=== PATIENT | male | born 1940 | race Two or more races ===

== ENCOUNTER 2020-02-25 00:52 | Inpatient (IN) | payer BC, OTHER ==
[~2020-02-25] VITALS: Ht 167.6 cm; Wt 63.5 kg
--- NOTE | 2020-02-25 00:55 | NUR ---
PT BIBFROM SNF C/O LOW O2 SAT IN THE 80'S ON ROOM AIR. PT PLACED ON FACE MASK 10 LPM. PT SATTING 98%. PT NOTED W/ FEVER @102.2. AWARE. PT CONNECTED TO THE EQUALIZER OPERATOR AND POX. IV LINE ESTABLISHED ON THE RAC 18 G,
--- NOTE | 2020-02-25 01:14 | NUR ---
BLOOD COLLECTED AND SENT TO LAB
--- NOTE | 2020-02-25 01:16 | NUR ---
EMT AT BEDSIDE FOR EKG
[2020-02-25] MEDS ORDERED: LIDOCAINE 2% JEL UROJET 10 ML MM ONE ×2 (01:21→01:30)
[2020-02-25] MEDS ORDERED: ACETAMINOPHEN 650 MG/SUPP.RECT RC ONE ×2 (01:21→01:30)
[2020-02-25] MEDS ORDERED: LEVOFLOXACIN 750 MG /D5W 150ML 150 ML IV ONE ×2 (01:21→01:30)
[2020-02-25] MEDS ORDERED: IV NS 0.9% 1,000 ML BAG IV ONE ×2 (01:30→03:30)
--- NOTE | 2020-02-25 01:30 | NUR ---
COVID AND FLU SWABS SENT TO LAB
--- NOTE | 2020-02-25 01:37 | NUR ---
RADIOLOGY AT BEDSIDE FOR XRAY.
--- NOTE | 2020-02-25 01:37 | NUR ---
PT ON 10L SIMPLE MASK, SAT 97%. PT NOTED TACHY AT 104.
--- NOTE | 2020-02-25 01:41 | NUR ---
URINE COLLECTED, SENT TO LAB.
[2020-02-25 01:43] LABS: HEMATOCRIT 51 % (39-51); MEAN CORPUSCULAR VOLUME 102 fL (80-96); MONOCYTES # (AUTO) 0.4 /CMM (0.1-1.30)
[2020-02-25 01:46] LABS: BASOPHILS # (AUTO) 0.1 /CMM (0.0-0.2); BASOPHILS % (AUTO) 0.4 % (0.0-2.0); HEMOGLOBIN 15.4 g/dL (13.5-17.5); LYMPHOCYTES # (AUTO) 0.9 /CMM (0.8-4.8); LYMPHOCYTES % (AUTO) 5.7 % (20.0-44.0); MEAN CORPUSCULAR HGB CONC 30 g/dl (31.0-36.0); MONOCYTES % (AUTO) 2.9 % (2.0-12.0); NEUTROPHILS # (AUTO) 13.6 /CMM (1.8-8.9); PLATELET COUNT (AUTO) 167 /CMM (150-450); RED BLOOD CELL COUNT(AUTO) 4.98 MIL/uL (4.5-6.0); WHITE BLOOD COUNT (AUTO) 14.9 K/uL (4.3-11.0)
[2020-02-25 01:47] LABS: BILIRUBIN,URINE Negative (NEGATIVE); BLOOD, URINE Trace-lysed Ery/uL (NEGATIVE); COLOR,URINE YELLOW (YELLOW); LEUKOCYTE ESTERASE ,URINE Small (NEGATIVE); NITRITE, URINE Negative (NEGATIVE); PROTEIN,URINE Negative (NEGATIVE); UGLUCOSE Negative (NEGATIVE); UROBILINOGEN,URINE 0.2 EU/dL (0.2)
[2020-02-25 01:57] LABS: ALANINE AMINOTRANSFERASE 36 U/L (12-78); ALKALINE PHOSPHATASE 160 U/L (46-116); ASPARTATE AMINOTRANSFERASE 25 U/L (15-37); B-TYPE NATRIURETIC PEPTIDE 1767 PG/ML (0-125); BILIRUBIN,DIRECT 0.2 mg/dL (0.0-0.2); BILIRUBIN,TOTAL 0.6 mg/dL (0.2-1.0); CALCIUM, SERUM 10.5 mg/dL (8.5-10.1); CARBON DIOXIDE 23 mmol/L (21-32); CREATININE 3.3 mg/dL (0.6-1.3); GLUCOSE 208 mg/dL (74-106); POTASSIUM 3.3 mmol/L (3.5-5.1); TOTAL PROTEIN, SERUM 8.6 g/dL (6.4-8.2)
[2020-02-25] MEDS ORDERED: ASPIRIN 300 MG/SUPP.RECT RC ONE ×2 (01:57→02:00)
[2020-02-25 02:01] LABS: CHLORIDE 152 mmol/L (98-107); SODIUM SERUM 192 mmol/L (136-145); UREA NITROGEN, BLOOD 100 mg/dL (7-18)
[2020-02-25 02:02] LABS: BACTERIA,URINE None seen /HPF (None Seen); RBC,URINE 0-2 /HPF (0-2); SQUAMOUS EPITHELIAL CELL,UR None Seen /HPF (None Seen); URINE AMORPHOUS URATE Moderate /HPF (None Seen); YEAST,URINE Few /HPF (None Seen)
[2020-02-25] MEDS ORDERED: ATOR20TA PO (02:08)
[2020-02-25] MEDS ORDERED: TAMS-12 PO (02:08)
[2020-02-25] MEDS ORDERED: METO25TA6 PO (02:08)
[2020-02-25] MEDS ORDERED: CRAN450C PO (02:08)
[2020-02-25] MEDS ORDERED: TYL2T PO (02:08)
[2020-02-25] MEDS ORDERED: AMLO10TA4 PO (02:08)
[2020-02-25] MEDS ORDERED: SENN-261 PO (02:08)
[2020-02-25] MEDS ORDERED: PANT40TA2 PO (02:08)
[2020-02-25] MEDS ORDERED: ASPI-1169 PO (02:08)
[2020-02-25] MEDS ORDERED: HYDR-4076 PO (02:08)
[2020-02-25] MEDS ORDERED: FINA5TAB3 PO (02:08)
[2020-02-25] MEDS ORDERED: QUET25TA PO ×2 (02:08)
[2020-02-25] MEDS ORDERED: TRAM50TA2 PO (02:08)
[2020-02-25] MEDS ORDERED: MIRT-121 PO (02:08)
--- NOTE | 2020-02-25 02:09 | NUR ---
PT ON BROWNELL OPERATOR AND PULSE OX. NOTED HR AT 93 NOW, SAT 95%. WILL CONTINUE TO MONITOR.
--- NOTE | 2020-02-25 02:23 | NUR ---
DR. PISANO SPEAKING WITH DR. SCHULTZ ([facility])
[2020-02-25] MEDS ORDERED: CEFTRIAXONE 1 G in IV D5W 50 ML IV ONE (02:30)
[2020-02-25] MEDS ORDERED: CEFTRIAXONE 1GM BAG (ER ONLY) 50 ML IV ONE (02:32)
[2020-02-25 02:40] LABS: CREATINE KINASE, TOTAL 137 U/L (39-308); FERRITIN 2196 ng/mL (8-388)
[2020-02-25 02:44] LABS: D-DIMER 18.28 mg/L(FEU (0.17-0.50)
[2020-02-25 02:45] LABS: C-REACTIVE PROTEIN 5.9 mg/dL (0.0-0.9)
--- NOTE | 2020-02-25 03:01 | NUR ---
PT BROUGHT TO CT.
--- NOTE | 2020-02-25 03:15 | NUR ---
PT BACK FROM CT. PT NOTED HYPOTENSIVE AGAIN, MD AWARE. WILL CONTINUE TO MONITOR. 95/55, HR OF 89, SAT 97%.
--- NOTE | 2020-02-25 03:17 | NUR ---
SPOKE TO THE MD REGARDING PT BEING HYPOTENSIVE, 1L NS ORDERED.
--- NOTE | 2020-02-25 03:24 | NUR ---
DR. PISANO SPEAKING WITH DR. JUNIOR REGARDING ADMISSION
--- NOTE | 2020-02-25 03:30 | NUR ---
CALLED NURSING SUP FOR BED
--- NOTE | 2020-02-25 04:01 | NUR ---
PT ON MONITOR AND PULSE OX. VSS.
--- NOTE | 2020-02-25 04:45 | NUR ---
RN OPENING NOTES RECEIVED PT IN BED. ASLEEP. A/O X0. NON VERBAL. AROUSABLE TO TOUCH AND LIGHT PAIN. WITH FACE MASK DELIVERING O2 AT 10L. PT ON CONT O2 MONITORING SATURATING AT 98% AT THIS TIME. NO RESP DISTRESS OR SHORTNESS OF BREATH NOTED AT THIS TIME. BREATHING IS EVEN AND UNLABORED AT THIS TIME. ON TELE MONITORING, PT PRESENTS WITH NSR HEART RATE OF 85. PT IS CURRENTLY NPO. LEFT IV SITE SLIGHT SWELLING AND RED AT THE SITE NOTED. IV SITE REMOVED. NO S/S OF BLEEDING NOTED. TAPED WITH GAUZE AND APPLIED WITH COLD COMPRESS. RIGHT AC IV FLUSHED ASEPTICALLY, PATENT. PT HAS SANDS CATHETER DRAINING CLOUDY YELLOW URINE, FREE OF SEDIMENT. BED IS LOCKED IN LOWEST POSITION. BED ALARM ON. SIDE RAILS UP X2. ID BAND ON. CALL LIGHT WITHIN REACH. WILL CONTINUE TO CLOSELY MONITOR. Addendum: 02/26/20 at 0503 by JASMYNE ROSS RN DISREGARD, INCORRECT TIME DOCUMENTED
--- NOTE | 2020-02-25 05:10 | NUR ---
Angella aj in [facility] - 02/25/20 at 0544 by BEATRIS CALLED FOR REPORT, NURSE NOT AVAILABLE.
--- NOTE | 2020-02-25 05:18 | NUR ---
REPORT GIVEN TO WILSON OLSON FOR CINDI. PT TRANSFERED PER [employer]S PROTOCOL.
[2020-02-25 05:40] VITALS: BP 108/64
--- NOTE | 2020-02-25 05:40 | NUR ---
Admitting NOTES Received patient fro ER via juliaA/Ox0, on simple mask @ 10 L of O2, tolerating well, SPO2 is 91-93%, tele-monitor readings is SR 83, Davidson cath in place, draining yellow cloudy urine by gravity, IV lines noted on: R AC G18, L AC G20, both patent in intact, flushes well, reddens noted on sacrum are, bilateral scabs on hands noted. Safety measures in place, bed is locked, in lowest position, HOB elevated, O2 sat monitor in place, call light in reach, will cont to monitor
[2020-02-25] MEDS ORDERED: MAG HYDROX/AL HYDROX/SIMETH 30 ML UDC PO PRN (06:00)
[2020-02-25] MEDS ORDERED: HYDROCODONE/APAP 5/325MG TABLET PO PRN (06:00)
[2020-02-25] MEDS ORDERED: MAGNESIUM HYDROXIDE 30 ML UDC PO PRN (06:00)
[2020-02-25] MEDS ORDERED: Z GUARD REMEDY 2 OZ OINT TP PRN (06:00)
[2020-02-25] MEDS ORDERED: ZOLPIDEM TARTRATE 5 MG TABLET PO PRN (06:00)
[2020-02-25] MEDS ORDERED: ACETAMINOPHEN 325 MG TABLET PO PRN (06:00)
[2020-02-25] MEDS ORDERED: ONDANSETRON HCL/PF 4 MG/2 ML VIAL IVP PRN (06:00)
--- NOTE | 2020-02-25 06:00 | NUR ---
Pictures taken, placed in chart
[2020-02-25 06:15] LABS: OCCULT BLOOD STOOL POSITIVE (NEGATIVE)
[2020-02-25 08:00] VITALS: BP 91/55
--- NOTE | 2020-02-25 08:07 | NUR ---
spoke with Ewelina ([phone]) , she is legal power of atty
--- NOTE | 2020-02-25 08:10 | NUR ---
Phone call from lab Na 188
[2020-02-25] MEDS ORDERED: VANCOMYCIN 1 GM in IV D5W 250 ML IV SCH (09:00)
--- NOTE | 2020-02-25 09:00 | NUR ---
Critical lab values reported to hospitalist
[2020-02-25] MEDS: IV NS 0.9% 1,000 ML IV PRN ×2 (09:05→18:21)
[2020-02-25] MEDS: PIPERACILLIN /TAZOBACTAM 2.25 G in IV D5W 50 ML IV SCH ×4 (09:05→23:16)
[2020-02-25] MEDS: FAMOTIDINE/PF INJ 20 MG/2 ML VIAL IV SCH ×2 (10:03→21:17)
[2020-02-25] MEDS ORDERED: MULT-447 PO (10:16)
[2020-02-25 14:10] LABS: BILIRUBIN,URINE NEGATIVE (NEGATIVE); BLOOD, URINE SMALL Ery/uL (NEGATIVE); COLOR,URINE YELLOW (YELLOW); LEUKOCYTE ESTERASE ,URINE TRACE (NEGATIVE); NITRITE, URINE NEGATIVE (NEGATIVE); PH,URINE 5.5 (5.0-8.0); PROTEIN,URINE TRACE mg/dl (NEGATIVE); UGLUCOSE NEGATIVE (NEGATIVE); UROBILINOGEN,URINE 0.2 EU/dL (0.2)
[2020-02-25 14:20] LABS: BACTERIA,URINE Few /HPF (None Seen); SQUAMOUS EPITHELIAL CELL,UR Few /HPF (None Seen); YEAST,URINE Few /HPF (None Seen)
[2020-02-25 14:27] LABS: CREATININE, URINE 134.2 MG/DL (30.0-125.0); URINE TOTAL PROTEIN 64.3 mg/dL (0-11.9)
[2020-02-25 15:07] LABS: EOSINOPHIL,URINE None Seen
[2020-02-25 15:45] LABS: CALCIUM, SERUM 8.3 mg/dL (8.5-10.1); CARBON DIOXIDE 17 mmol/L (21-32); CREATININE 2.6 mg/dL (0.6-1.3); GLUCOSE 132 mg/dL (74-106)
[2020-02-25 15:58] LABS: SODIUM SERUM 191 mmol/L (136-145)
[2020-02-25 15:59] LABS: CHLORIDE 151 mmol/L (98-107); UREA NITROGEN, BLOOD 96 mg/dL (7-18)
--- NOTE | 2020-02-25 16:00 | NUR ---
Critical labs reported from lab, Hospitalist notified
--- NOTE | 2020-02-25 18:42 | NUR ---
RN CLOSING NOTES PATIENT REMAINS IN BED, TOLERATING O2 THERAPY WELL, NO DISTRESS OR SOB NOTED, SR ON TELEMONITOR, SANDS CATH DRAINIG YELLOW CLOUDY URINE BY GRAVITY, RESPIRATION EVEN AND RELAXED, ALL MEDICATIONS GIVEN, SPECIMENS SEND TO LAB, COMFORT NEEDS ATTENDED, IV LINES PATENT, INTACT AND FLUSHED, VS WAS STABLE DURING THE SHIFT, SAFETY MEASURES IN PLACE, BED IS LOCKED IN LOWEST POSITION, HOB ELEVATED, WILL ENDORSE TO PM SHIFT RN FOR CINDI
--- NOTE | 2020-02-25 19:10 | NUR ---
RN OPENING NOTES RECEIVED PT IN BED. ASLEEP. A/O X0. NON VERBAL. AROUSABLE TO TOUCH AND LIGHT PAIN. WITH FACE MASK DELIVERING O2 AT 10L. PT ON CONT O2 MONITORING SATURATING AT 98% AT THIS TIME. NO RESP DISTRESS OR SHORTNESS OF BREATH NOTED AT THIS TIME. BREATHING IS EVEN AND UNLABORED AT THIS TIME. ON TELE MONITORING, PT PRESENTS WITH NSR HEART RATE OF 85. PT IS CURRENTLY NPO. LEFT IV SITE SLIGHT SWELLING AND RED AT THE SITE NOTED. IV SITE REMOVED. NO S/S OF BLEEDING NOTED. TAPED WITH GAUZE AND APPLIED WITH COLD COMPRESS. RIGHT AC IV FLUSHED ASEPTICALLY, PATENT. PT HAS SANDS CATHETER DRAINING CLOUDY YELLOW URINE, FREE OF SEDIMENT. BED IS LOCKED IN LOWEST POSITION. BED ALARM ON. SIDE RAILS UP X2. ID BAND ON. CALL LIGHT WITHIN REACH. WILL CONTINUE TO CLOSELY MONITOR.
[2020-02-25 20:00] VITALS: BP 113/57
--- NOTE | 2020-02-25 22:19 | NUR ---
PT IS RESTING WELL. SOMEWHAT RESISTS, BUT ABLE TO T/R.
[2020-02-26] VITALS: BP 130/67
--- NOTE | 2020-02-26 01:05 | NUR ---
PT CURRENTLY RESTING. SAFETY MEASURES IN PLACE. NO INDICATION OF PAIN BASED ON FLACC. PT IS CALM.
[2020-02-26] MEDS: IV NS 0.9% 1,000 ML IV PRN (02:28)
[2020-02-26 04:00] VITALS: BP 125/67
--- NOTE | 2020-02-26 04:05 | NUR ---
PT CLEANED, BED BATH PERFORMED.
[2020-02-26] MEDS: PIPERACILLIN /TAZOBACTAM 2.25 G in IV D5W 50 ML IV SCH ×3 (05:40→18:46)
--- NOTE | 2020-02-26 06:10 | NUR ---
INFORMED DR LOPEZ ABOUT PT SODIUM LEVELS AND RECEIVING NS IVF. NO NEW ORDERS AT THIS TIME. HOLDING IVF. CHARGE NURSE MADE AWARE
[2020-02-26 06:12] LABS: HEMATOCRIT 37 % (39-51); HEMOGLOBIN 11.3 g/dL (13.5-17.5); LYMPHOCYTES % (AUTO) 7.2 % (20.0-44.0); MEAN CORPUSCULAR HGB CONC 30 g/dl (31.0-36.0); MEAN CORPUSCULAR VOLUME 101 fL (80-96); MONOCYTES # (AUTO) 0.2 /CMM (0.1-1.30); MONOCYTES % (AUTO) 1.7 % (2.0-12.0); NEUTROPHILS # (AUTO) 12.3 /CMM (1.8-8.9); NEUTROPHILS % (AUTO) 91.1 % (43.0-81.0); PLATELET COUNT (AUTO) 88 /CMM (150-450); RED BLOOD CELL COUNT(AUTO) 3.66 MIL/uL (4.5-6.0); WHITE BLOOD COUNT (AUTO) 13.5 K/uL (4.3-11.0)
[2020-02-26 06:27] LABS: ALANINE AMINOTRANSFERASE 33 U/L (12-78); ALBUMIN 1.9 g/dL (3.4-5.0); ALKALINE PHOSPHATASE 102 U/L (46-116); ASPARTATE AMINOTRANSFERASE 42 U/L (15-37); BILIRUBIN,TOTAL 0.5 mg/dL (0.2-1.0); CALCIUM, SERUM 8.5 mg/dL (8.5-10.1); CARBON DIOXIDE 20 mmol/L (21-32); CREATININE 2.7 mg/dL (0.6-1.3); GLUCOSE 115 mg/dL (74-106); MAGNESIUM 2.5 mg/dL (1.8-2.4); PHOSPHORUS 2.4 mg/dL (2.5-4.9); POTASSIUM 2.9 mmol/L (3.5-5.1)
[2020-02-26 06:48] LABS: CHLORIDE 155 mmol/L (98-107)
[2020-02-26 06:49] LABS: CHOLESTEROL 84 mg/dL (<200); CREATINE KINASE, TOTAL 504 U/L (39-308); HDL CHOLESTEROL 35 mg/dL (40-60); LDL 36 mg/dL (0-99); THYROID STIMULATING HORMONE 0.807 uIU/mL (0.358-3.74); TRIGLYCERIDES 75 mg/dL (30-150)
[2020-02-26 06:51] LABS: SODIUM SERUM 193 mmol/L (136-145); UREA NITROGEN, BLOOD 96 mg/dL (7-18)
--- NOTE | 2020-02-26 06:53 | NUR ---
CRITICAL LAB SODIUM 193, LACTIC ACID 3.2. CHARGE AWARE. WILL ENDORSE ONCOMING NURSE AND MD.
--- NOTE | 2020-02-26 06:55 | NUR ---
SODIUM LEVEL OF 193. MD AWARE NEW ORDERS OF CHANGE OF FLUID. TO 0.45 NS. WILL ENDORSE TO AM NURSE
[2020-02-26] MEDS ORDERED: IV 1/2NS 1000 ML 1,000 ML IV SCH (07:00)
--- NOTE | 2020-02-26 07:10 | NUR ---
TOOK OFF FACE MASK AND APPLIED NASAL CANNULA. PT NOW ON 1L OF OXYGEN. NO RESPIRATORY DISTRESS OR SHORTNESS OF BREATH NOTED AT THIS TIME. PT IS BECOMING MORE ALERT. O2 SATURATION IS AT 97%. Addendum: 02/26/20 at 0822 by JASMYNE ROSS RN MD LIANG MADE AWARE
[2020-02-26 07:21] LABS: BAND % (MANUAL) 5 % (0.0-5.0); LYMPHOCYTES % (MANUAL) 9 % (16-48); MONOCYTES % (MANUAL) 2 % (0-11.0); NEUTROPHILS % (MANUAL) 84 (42-76)
--- NOTE | 2020-02-26 07:30 | NUR ---
RN OPENING NOTES PATIENT IN BED, CONFUSED, ON NC @ 2l, TOLERATING WELL, SPO2 IS 100%, FLACC SCORE INDICATED 0, HOB ELEVATED, IV LINE ON R AC PATENT, INTACT AND FLUSHES WELL, TELE-MONITOR SR 82, NPO STATUS NOTED, SAFETY MEASURES IN PLACE, CALL LIGHT IN PLACE, BED IS LOCKED IN LOWEST POSITION, WILL CONT TO MONITOR
--- NOTE | 2020-02-26 07:35 | NUR ---
TELE-MONITOR READING IS SR [id number] AT THIS MOMENT
--- NOTE | 2020-02-26 07:50 | NUR ---
RN CLOSING NOTES PT IS BECOMING MORE ALERT. LETHARGIC. AROUSABLE TO NAME AND TOUCH. PT IS STILL ON TELE MONITORING NORMAL SINUS RHYTHM. NO CHANGES THROUGHOUT THE NIGHT. HEART RATE AT THIS TIME IS 89. PT IS CURRENTLY ON 1L OF OXYGEN SATURATING AT 97%. NO S/S OF RESPIRATORY DISTRESS NOTED. BREATHING IS EVEN AND UNLABORED. NO SHORTNESS OF BREATH NOTED. PT IS RECEIVING 0.45% NORMAL SALINE ORDERED RUNNING AT 125ML/HR. NO S/S OF INFILTRATION NOTED. NO BOWEL MOVEMENT ON MY SHIFT. SAFETY MEASURES IN PLACE. HEAD OF BED ELEVATED 40 DEGREES. SIDE RAILS UP X2. BED IS LOCKED IN LOWEST POSITION WITH BED ALARM ON. CALL LIGHT WITHIN REACH. ENDORSED TO AM NURSE FOR CONTINUATION OF CARE.
[2020-02-26 08:00] VITALS: BP 113/69
[2020-02-26] MEDS: IV D5W 1,000 ML IV PRN ×2 (08:35→18:46)
[2020-02-26] MEDS: FAMOTIDINE/PF INJ 20 MG/2 ML VIAL IV SCH ×2 (08:41→21:00)
[2020-02-26 09:01] LABS: CALCIUM, SERUM 8.6 mg/dL (8.5-10.1); CARBON DIOXIDE 16 mmol/L (21-32); CREATININE 2.6 mg/dL (0.6-1.3); GLUCOSE 110 mg/dL (74-106)
[2020-02-26 09:04] LABS: CHLORIDE 160 mmol/L (98-107)
[2020-02-26 09:08] LABS: SODIUM SERUM 193 mmol/L (136-145); UREA NITROGEN, BLOOD 100 mg/dL (7-18)
[2020-02-26] MEDS ORDERED: SENNOSIDES 8.6 MG TABLET PO PRN (11:30)
[2020-02-26] MEDS: ASPIRIN 81 MG TAB.CHEW PO SCH (11:30)
[2020-02-26] MEDS ORDERED: hydrALAZINE HCL 25 MG TABLET PO PRN (11:30)
[2020-02-26] MEDS: QUETIAPINE FUMARATE 25 MG TABLET PO SCH ×2 (11:30→21:35)
[2020-02-26 12:00] VITALS: BP 116/64
--- NOTE | 2020-02-26 12:00 | NUR ---
IV LINE STARTED L FA G 22, INTACT AND FLUSHES WELL
[2020-02-26] MEDS: POTASSIUM CL. PREMIX PERIPHER. 50 ML IV SCH ×4 (13:16→16:08)
[2020-02-26 16:00] VITALS: BP 117/65
[2020-02-26] MEDS: POTASSIUM PHOSPHATE MM 5 MMOL in IV NS 0.9% 100 ML IV SCH ×2 (16:55→21:17)
[2020-02-26] MEDS: METOPROLOL TARTRATE 25 MG TABLET PO SCH (17:00)
--- NOTE | 2020-02-26 19:07 | NUR ---
RN OPENING NOTES PATIENT REMAINS IN BED, RESTING COMFORTABLY, ON NC @ 2l, TOLERATING WELL, SPO2 IS 100%, FLACC SCORE INDICATED 0, HOB ELEVATED, IV LINES ON R AC AND L FA PATENT, INTACT AND FLUSHES WELL, TOLERATING FLUIDS WELL , TELE-MONITOR SR 80, NPO STATUS REMAINS, SAFETY MEASURES IN PLACE, CALL LIGHT IN PLACE, BED IS LOCKED IN LOWEST POSITION, WILL CONT TO MONITOR Addendum: 02/26/20 at 1909 by Xiao Contreras RN RN CLOSING NOTES PATIENT REMAINS IN BED, RESTING COMFORTABLY, ON NC @ 2l, TOLERATING WELL, SPO2 IS 100%, FLACC SCORE INDICATED 0, HOB ELEVATED, IV LINES ON R AC AND L FA PATENT, INTACT AND FLUSHES WELL, TOLERATING FLUIDS WELL , TELE-MONITOR SR 80, NPO STATUS REMAINS, SAFETY MEASURES IN PLACE, CALL LIGHT IN PLACE, BED IS LOCKED IN LOWEST POSITION, WILL CONT TO MONITOR
[2020-02-26 20:00] VITALS: BP 125/60
--- NOTE | 2020-02-26 20:00 | NUR ---
Rn opening note Received pt in bed. Breathing even and unlabored with no sob or acute distress noted. No s/s of pain or discomfort. Right AC #18 patent and intact. LFA #22 patent and intact. IV fluids infusing well. Davidson cath in place. Kept clean and dry. All needs rendered. Bed in lowest position. Srx2 up. Will continue to monitor.
[2020-02-26] MEDS ORDERED: VANCOMYCIN 0.75 GM in IV D5W 250 ML IV SCH (21:00)
[2020-02-26] MEDS: ATORVASTATIN 10 MG TABLET PO SCH (21:35)
[2020-02-26] MEDS: TAMSULOSIN 0.4 MG CAP.SR.24H PO SCH (21:35)
[2020-02-26] MEDS: MIRTAZAPINE 15 MG TABLET PO SCH (21:35)
[2020-02-26] MEDS ORDERED: Medication Not On Formulary EA (Atorvastatin Calcium (Lipitor) 20 MG) PO SCH (22:00)
[2020-02-27] VITALS: BP 125/66
[2020-02-27] MEDS: PIPERACILLIN /TAZOBACTAM 2.25 G in IV D5W 50 ML IV SCH ×3 (00:06→12:30)
[2020-02-27 04:00] VITALS: BP 131/63
[2020-02-27] MEDS: IV D5W 1,000 ML IV PRN ×2 (04:37→15:01)
[2020-02-27 06:02] LABS: BASOPHILS % (AUTO) 0.1 % (0.0-2.0); EOSINOPHILS % (AUTO) 0.4 % (0.0-6.0); HEMATOCRIT 36 % (39-51); HEMOGLOBIN 11.1 g/dL (13.5-17.5); LYMPHOCYTES # (AUTO) 0.9 /CMM (0.8-4.8); LYMPHOCYTES % (AUTO) 8.1 % (20.0-44.0); MEAN CORPUSCULAR HGB CONC 31 g/dl (31.0-36.0); MEAN CORPUSCULAR VOLUME 99 fL (80-96); MONOCYTES # (AUTO) 0.2 /CMM (0.1-1.30); MONOCYTES % (AUTO) 1.6 % (2.0-12.0); NEUTROPHILS # (AUTO) 10.3 /CMM (1.8-8.9); NEUTROPHILS % (AUTO) 89.8 % (43.0-81.0); PLATELET COUNT (AUTO) 69 /CMM (150-450); WHITE BLOOD COUNT (AUTO) 11.4 K/uL (4.3-11.0)
[2020-02-27 06:16] LABS: CALCIUM, SERUM 8.2 mg/dL (8.5-10.1); CARBON DIOXIDE 18 mmol/L (21-32); CREATININE 2.1 mg/dL (0.6-1.3); GLUCOSE 158 mg/dL (74-106); MAGNESIUM 2.5 mg/dL (1.8-2.4); PHOSPHORUS 3.5 mg/dL (2.5-4.9); UREA NITROGEN, BLOOD 77 mg/dL (7-18)
[2020-02-27 06:47] LABS: CHLORIDE 153 mmol/L (98-107); POTASSIUM 2.8 mmol/L (3.5-5.1); SODIUM SERUM 185 mmol/L (136-145)
--- NOTE | 2020-02-27 06:50 | NUR ---
telecommunicator note Received phone call from Kieran from lab. Reported critically high sodium 185 and chloride 153. Values trending down. Dr. Dela Cruz made aware of potassium 2.8 with new order for potassium chloride 50 meq IV. New order noted and carried out.
[2020-02-27] MEDS ORDERED: POTASSIUM CHLORIDE 10 MEQ/50 ML PREMIXED IVPB FOR PERIPHERAL LINE IV ONE (07:30)
[2020-02-27] MEDS: PANTOPRAZOLE 40 MG TABLET.DR PO SCH (07:30)
--- NOTE | 2020-02-27 07:30 | NUR ---
RN OPENING NOTES PATIENT IN BED, AOX1, ON NC @ 2l, TOLERATING WELL, SPO2 IS 97%, FLACC SCORE INDICATED 0, HOB ELEVATED, IV LINE ON R AC PATENT, INTACT AND FLUSHES WELL, TELE-MONITOR SR 87, NPO STATUS NOTED, SAFETY MEASURES IN PLACE, CALL LIGHT IN PLACE, BED IS LOCKED IN LOWEST POSITION, WILL CONT TO MONITOR
--- NOTE | 2020-02-27 07:30 | NUR ---
Ship Pilot Dispatcher note pt in bed. alert oriented 1. breathing even and unlabored with no sob or acute distress noted on 2lpm via nc. 02 sat 96%. No s/s of pain and discomfort. IV sites patent and intact. Iv fluids infusing well. Kept clean and dry. All needs rendered . Call light within reach. Bed in lowest position. Endorsed to Xiao for continuity of care.
[2020-02-27 08:00] VITALS: BP 141/85
[2020-02-27 08:06] LABS: PTH, INTACT 39 pg/mL (15-65)
[2020-02-27] MEDS: METOPROLOL TARTRATE 25 MG TABLET PO SCH ×2 (09:00→17:00)
[2020-02-27] MEDS: MULTIVIT W/MINERALS 1 TAB TABLET PO SCH (09:00)
[2020-02-27] MEDS: AMLODIPINE BESYLATE 10 MG TABLET PO SCH (09:00)
[2020-02-27] MEDS: ASPIRIN 81 MG TAB.CHEW PO SCH (09:00)
[2020-02-27] MEDS ORDERED: Medication Not On Formulary EA (Multivitamin With Minerals (One Daily Complete) 1 EACH) PO SCH (09:00)
[2020-02-27] MEDS: QUETIAPINE FUMARATE 25 MG TABLET PO SCH ×2 (09:00→21:15)
[2020-02-27] MEDS: FINASTERIDE (5 MG) 5 MG TABLET PO SCH (09:00)
[2020-02-27] MEDS: FAMOTIDINE/PF INJ 20 MG/2 ML VIAL IV SCH ×2 (10:00→21:12)
[2020-02-27] MEDS: POTASSIUM CL. PREMIX PERIPHER. 50 ML IV SCH ×5 (10:00→15:01)
[2020-02-27 10:37] LABS: LYMPHOCYTES % (MANUAL) 9 % (16-48); MONOCYTES % (MANUAL) 2 % (0-11.0); NEUTROPHILS % (MANUAL) 89 (42-76)
--- NOTE | 2020-02-27 11:30 | NUR ---
FAIL SWALLOW EVALUATION TEST
[2020-02-27 12:00] VITALS: BP 118/63
--- NOTE | 2020-02-27 14:00 | NUR ---
IV LINE INFILTRATED, TRY TO INSET NEW LINE X3, WILL RECOMMEND MID-LINE
[2020-02-27 16:00] VITALS: BP 105/58
[2020-02-27] MEDS: PIPERACILLIN /TAZOBACTAM 3.375 G in IV D5W 50 ML IV SCH (18:28)
--- NOTE | 2020-02-27 19:45 | NUR ---
RN CLOSING NOTES PATIENT REMAINS IN BED, RESTING COMFORTABLY, ON NC @ 2l, TOLERATING WELL, SPO2 IS 96%, FLACC SCORE INDICATED 0, HOB ELEVATED, IV LINES ON R AC AND UPPER MID LINE PATENT, INTACT AND FLUSHES WELL, TOLERATING FLUIDS WELL , TELE-MONITOR SR 84, NPO STATUS REMAINS, SAFETY MEASURES IN PLACE, CALL LIGHT IN PLACE, BED IS LOCKED IN LOWEST POSITION, WILL ENDORSE TO PM SHIFT RN FOR CINDI
[2020-02-27 20:00] VITALS: BP 99/71
--- NOTE | 2020-02-27 20:20 | NUR ---
RECEIVED PATIENT IN BED,AWAKE, NON VERBAL, RESPONDS TO LIGHT TOUCH. NO S/S OF DISTRESS NOTED. NOT IN PAIN. CALL LIGHT WITHIN REACH. BED ALARM ON. BED IN LOWEST AND LOCKED POSITION. NPO. HOB ELEVATED.
--- NOTE | 2020-02-27 20:55 | NUR ---
REPORTS GIVEN TO WESLEY CONRAD FOR CONTINUITY OF CARE.
--- NOTE | 2020-02-27 20:56 | NUR ---
PROOFING MACHINE OPERATOR NOTES PATIENT IN BED, EASILY AROUSED, ALERT AND ORIENTED X 1. BREATHING EVEN AND UNLABORED ON 2L NC. SHOWS NO SIGNS OF ACUTE RESPIRATORY DISTRESS. NO ACUTE PAIN. TELE MONITOR SR. NPO FAILED SWALLOW EVAL. RAC 18G RUNNING D5W AT 125ML/HR. AND PETR MIDLINE INTACT. BOTH SHOWS NO SIGNS OF INFILTRATION, NO REDNESS. SAFETY PRECAUTIONS IN PLACE. BED IN LOWEST POSITION, LOCKED, AND CALL LIGHT KEPT WITHIN REACH. WILL CONTINUE TO MONITOR.
[2020-02-27] MEDS ORDERED: VANCOMYCIN 0.75 GM in IV D5W 250 ML IV SCH (21:00)
[2020-02-27] MEDS: TAMSULOSIN 0.4 MG CAP.SR.24H PO SCH (21:14)
[2020-02-27] MEDS: ATORVASTATIN 10 MG TABLET PO SCH (21:14)
[2020-02-27] MEDS: MIRTAZAPINE 15 MG TABLET PO SCH (21:15)
[2020-02-28] VITALS: BP 120/64
[2020-02-28] MEDS: PIPERACILLIN /TAZOBACTAM 3.375 G in IV D5W 50 ML IV SCH ×4 (00:23→17:49)
[2020-02-28 04:00] VITALS: BP 120/72
[2020-02-28] MEDS: IV D5W 1,000 ML IV PRN ×3 (04:15→15:12)
--- NOTE | 2020-02-28 05:30 | NUR ---
MAINSPRING TORQUE TESTER NOTES GIVEN BEDSIDE REPORT TO CARLOS RN FOR CINDI
--- NOTE | 2020-02-28 05:40 | NUR ---
MARKETING DIRECTOR ASSISTED LIVING NOTES REPORT GIVEN BY WESLEY CONRAD TRANSFERRED PATIENT FROM 114-1 TO 323-1 DUE TO COVID NEGATIVE RESULT. PATIENT IN STABLE CONDITION ON O2 AT 2LPM VIA NASAL CANNULA. SAFETY MEASURES IN PLACE, ASPIRATION PRECAUTION EMPHASIZED. NPO MAINTAINED FAILED SWALLOW EVAL. REPOSITIONED FOR COMFORT. TELE MONITOR READS SINUS RHYTHM 72. LEFT UPPER ARM MIDLINE INTACT AND PATENT. VITAL SIGNS TAKEN AND RECORDED. BP 134/53; HR76;RR20;TEMP96.4; O2 SAT 97%. ALL NEEDS ANTICIPATED. WILL CONTINUE TO MONITOR ACCORDINGLY.
--- NOTE | 2020-02-28 06:14 | NUR ---
INFORMATION SPECIALIST NOTES ALL NEEDS ATTENDED AND MET. ABLE TO REST AND SLEPT AT INTERVALS, TELE MONITOR READS SINUS 70s. NO SIGNS OF ACUTE DISTRESS. SAFETY MEASURES IN PLACE, ASPIRATION PRECAUTION EMPHASIZED, NPO MAINTAINED. CALL LIGHT WIHIN EASY REACH. WILL ENDORSE TO AM NURSE FOR CONTINUITY OF CARE.
[2020-02-28] MEDS: PANTOPRAZOLE 40 MG TABLET.DR PO SCH (06:40)
[2020-02-28 07:10] LABS: *SPE A/G RATIO 0.6 (0.7-1.7); *SPE ALBUMIN 1.9 g/dL (2.9-4.4); *SPE ALPHA-1-GLOBULIN 0.4 g/dL (0.0-0.4); *SPE ALPHA-2-GLOBULIN 0.8 g/dL (0.4-1.0); *SPE BETA GLOBULIN 0.8 g/dL (0.7-1.3); *SPE GLOBULIN, TOTAL 3.4 g/dL (2.2-3.9); *SPE M-SPIKE Not Observed g/dL (Not Observed); *SPEGAMMA GLOBULIN 1.4 g/dL (0.4-1.8)
[2020-02-28 08:00] VITALS: BP_SYST 116; BP_DIAS 73; BP_DIAS 76
--- NOTE | 2020-02-28 08:00 | NUR ---
SUPERVISOR SHOP NOTES PT RECEIVED ALERT AND AWAKE IN BED ORIENTED X 1. NO SIGNS OF SOB NOTED. PT ON 2 L OF 0XYGEN VIA NASAL CANNULA. BED ALARM ON, CALL LIGHT WITHIN REACH. MIDLINE ON THE PETR NO REDNESS OR SWELLING NOTED AT THIS TIME. NO PAIN NOTED OR VISIBLE AT THIS TIME. PT NPO AT THIS TIME DUE TO FAILED SWALLOW EVALUATION. ALL NURSING NEEDS MET AT THIS TIME WILL CONTINUE TO MONITOR.
[2020-02-28 08:01] LABS: BASOPHILS % (AUTO) 0.3 % (0.0-2.0); EOSINOPHILS % (AUTO) 2.1 % (0.0-6.0); HEMATOCRIT 39 % (39-51); HEMOGLOBIN 11.8 g/dL (13.5-17.5); LYMPHOCYTES % (AUTO) 10.9 % (20.0-44.0); MEAN CORPUSCULAR HGB CONC 31 g/dl (31.0-36.0); MEAN CORPUSCULAR VOLUME 101 fL (80-96); MONOCYTES # (AUTO) 0.1 /CMM (0.1-1.30); MONOCYTES % (AUTO) 1.3 % (2.0-12.0); NEUTROPHILS # (AUTO) 7.9 /CMM (1.8-8.9); NEUTROPHILS % (AUTO) 85.4 % (43.0-81.0); PLATELET COUNT (AUTO) 59 /CMM (150-450); RED BLOOD CELL COUNT(AUTO) 3.83 MIL/uL (4.5-6.0); WHITE BLOOD COUNT (AUTO) 9.2 K/uL (4.3-11.0)
[2020-02-28 08:02] LABS: CALCIUM, SERUM 8.3 mg/dL (8.5-10.1); CARBON DIOXIDE 17 mmol/L (21-32); CREATININE 1.6 mg/dL (0.6-1.3); GLUCOSE 121 mg/dL (74-106); MAGNESIUM 2.8 mg/dL (1.8-2.4); POTASSIUM 3.3 mmol/L (3.5-5.1); UREA NITROGEN, BLOOD 55 mg/dL (7-18)
[2020-02-28 08:21] LABS: CHLORIDE 149 mmol/L (98-107); SODIUM SERUM 181 mmol/L (136-145)
[2020-02-28] MEDS: QUETIAPINE FUMARATE 25 MG TABLET PO SCH ×2 (09:00→22:00)
[2020-02-28] MEDS: MULTIVIT W/MINERALS 1 TAB TABLET PO SCH (09:00)
[2020-02-28] MEDS: ASPIRIN 81 MG TAB.CHEW PO SCH (09:00)
[2020-02-28] MEDS: AMLODIPINE BESYLATE 10 MG TABLET PO SCH (09:00)
[2020-02-28] MEDS: METOPROLOL TARTRATE 25 MG TABLET PO SCH ×2 (09:00→17:00)
[2020-02-28] MEDS: FINASTERIDE (5 MG) 5 MG TABLET PO SCH (09:00)
--- NOTE | 2020-02-28 09:00 | NUR ---
NOTIFIED MELITA RAYMOND OF PT'S VTE 3 SCORE AND SEGUNDO STATED THAT PT'S PLATELETS IS 59.NO CHEMICAL PROPHYLAXIS PRESCRIBED, JUST SCD FOR NOW.
[2020-02-28 10:45] LABS: BAND % (MANUAL) 1 % (0.0-5.0); EOSINOPHILS % (MANUAL) 1 % (0-4); LYMPHOCYTES % (MANUAL) 12 % (16-48); MONOCYTES % (MANUAL) 1 % (0-11.0); NEUTROPHILS % (MANUAL) 85 (42-76)
[2020-02-28] MEDS: POTASSIUM CL. PREMIX PERIPHER. 50 ML IV SCH ×4 (11:19→18:41)
[2020-02-28] MEDS: FAMOTIDINE/PF INJ 20 MG/2 ML VIAL IV SCH ×2 (11:50→22:53)
[2020-02-28] MEDS: VANCOMYCIN 0.75 GM in IV D5W 250 ML IV SCH (15:06)
--- NOTE | 2020-02-28 18:26 | NUR ---
RN NOTES PT ASLEEP IN BED. NO SIGNS OF SOB NOTED. PT ON 2 L OF 0XYGEN VIA NASAL CANNULA. BED ALARM ON, CALL LIGHT WITHIN REACH. MIDLINE ON THE PETR NO REDNESS OR SWELLING NOTED AT THIS TIME. NO PAIN NOTED OR VISIBLE AT THIS TIME. PT NPO AT THIS TIME DUE TO FAILED SWALLOW EVALUATION. ALL NURSING NEEDS MET AT THIS TIME WILL CONTINUE TO MONITOR.
--- NOTE | 2020-02-28 19:22 | NUR ---
MS RN: CONTINUITY OF CARE Patient in bed awake, eyes open. Speech garble unclear. On Oxygen 2L via NC. PETR Midline, IVF infusing, IV Potassium supplement completed. Patient failed swallow eval per report and NPO status at this time. Fall; Skin precaution maintained.
[2020-02-28 20:00] VITALS: BP 110/51
[2020-02-28 20:54] VITALS: BP 110/51
[2020-02-28] MEDS: TAMSULOSIN 0.4 MG CAP.SR.24H PO SCH (22:00)
[2020-02-28] MEDS: MIRTAZAPINE 15 MG TABLET PO SCH (22:00)
[2020-02-28] MEDS: ATORVASTATIN 10 MG TABLET PO SCH (22:00)
[2020-02-29] MEDS: PIPERACILLIN /TAZOBACTAM 3.375 G in IV D5W 50 ML IV SCH ×4 (00:20→18:09)
[2020-02-29] MEDS: IV D5W 1,000 ML IV PRN ×3 (01:02→21:20)
[2020-02-29 06:57] LABS: BASOPHILS % (AUTO) 0.2 % (0.0-2.0); EOSINOPHILS % (AUTO) 5.3 % (0.0-6.0); HEMATOCRIT 38 % (39-51); HEMOGLOBIN 11.4 g/dL (13.5-17.5); LYMPHOCYTES # (AUTO) 0.7 /CMM (0.8-4.8); LYMPHOCYTES % (AUTO) 11.8 % (20.0-44.0); MEAN CORPUSCULAR HGB CONC 30 g/dl (31.0-36.0); MEAN CORPUSCULAR VOLUME 104 fL (80-96); MONOCYTES # (AUTO) 0.1 /CMM (0.1-1.30); MONOCYTES % (AUTO) 1.9 % (2.0-12.0); NEUTROPHILS # (AUTO) 4.5 /CMM (1.8-8.9); NEUTROPHILS % (AUTO) 80.8 % (43.0-81.0); RED BLOOD CELL COUNT(AUTO) 3.63 MIL/uL (4.5-6.0); WHITE BLOOD COUNT (AUTO) 5.5 K/uL (4.3-11.0)
[2020-02-29 07:11] LABS: ALBUMIN 1.5 g/dL (3.4-5.0); BILIRUBIN,TOTAL 0.5 mg/dL (0.2-1.0); CALCIUM, SERUM 7.8 mg/dL (8.5-10.1); CREATININE 1.2 mg/dL (0.6-1.3); MAGNESIUM 2.7 mg/dL (1.8-2.4); PHOSPHORUS 2.6 mg/dL (2.5-4.9); POTASSIUM 3.3 mmol/L (3.5-5.1); TOTAL PROTEIN, SERUM 5.7 g/dL (6.4-8.2)
--- NOTE | 2020-02-29 07:14 | NUR ---
MS RN: END OF SHIFT REPORT Patient is confused, does not follow commands. PETR Midline intact, IVF infusing. On IV Zosyn and Vancomycin. Had BM this shift, afebrile. Davidson cath to gravity drainage with adequate urine output. Remains NPO, failed swallow eval. Skin precaution maintained. Wound consult to follow.
[2020-02-29] MEDS: PANTOPRAZOLE 40 MG TABLET.DR PO SCH (07:30)
--- NOTE | 2020-02-29 08:00 | NUR ---
received pt. this am vs stable.skin warm and dry.iv infusing,appears comfortable.
[2020-02-29 08:31] LABS: PLATELET COUNT (AUTO) 50 /CMM (150-450)
[2020-02-29] MEDS: ASPIRIN 81 MG TAB.CHEW PO SCH (09:00)
[2020-02-29] MEDS: AMLODIPINE BESYLATE 10 MG TABLET PO SCH (09:00)
[2020-02-29] MEDS: FAMOTIDINE/PF INJ 20 MG/2 ML VIAL IV SCH ×2 (09:00→21:22)
[2020-02-29] MEDS: METOPROLOL TARTRATE 25 MG TABLET PO SCH ×2 (09:00→16:51)
[2020-02-29] MEDS: QUETIAPINE FUMARATE 25 MG TABLET PO SCH ×2 (09:00→21:24)
[2020-02-29] MEDS: MULTIVIT W/MINERALS 1 TAB TABLET PO SCH (09:00)
[2020-02-29] MEDS: FINASTERIDE (5 MG) 5 MG TABLET PO SCH (09:00)
[2020-02-29] MEDS: VANCOMYCIN 0.75 GM in IV D5W 250 ML IV SCH (10:23)
[2020-02-29 10:59] LABS: LYMPHOCYTES % (MANUAL) 14 % (16-48); MONOCYTES % (MANUAL) 2 % (0-11.0); NEUTROPHILS % (MANUAL) 84 (42-76)
[2020-02-29] MEDS: POTASSIUM CL. PREMIX PERIPHER. 50 ML IV SCH ×4 (12:25→16:45)
[2020-02-29] MEDS ORDERED: IPRATROPIUM/ALBUTEROL INHALER IH SCH (18:00)
--- NOTE | 2020-02-29 18:00 | NUR ---
received potassium iv for low potassium level.
--- NOTE | 2020-02-29 19:00 | NUR ---
RECEIVED IN BED ALERT AND ORIENTATED X4 TALKATIVE ABOUT HIS HEALTH AND HIS NEED WHILE HERE AND WANTING TO GO HOME IV SITE MEY CORNELIUS ASKED HIM 4 TIMES MAY I CHANGE HIS IV WITH REASON WHY FINALLY HE LET ME STARTED IT ON THE RIGHT F/A
[2020-02-29 20:00] VITALS: BP 112/70
[2020-02-29 20:29] VITALS: BP 165/60
[2020-02-29] MEDS: ATORVASTATIN 10 MG TABLET PO SCH (21:23)
[2020-02-29] MEDS: TAMSULOSIN 0.4 MG CAP.SR.24H PO SCH (21:23)
[2020-02-29] MEDS: MIRTAZAPINE 15 MG TABLET PO SCH (21:23)
[2020-02-29 23:31] VITALS: BP_SYST 112
[2020-03-01] MEDS: PIPERACILLIN /TAZOBACTAM 3.375 G in IV D5W 50 ML IV SCH ×4 (00:05→18:00)
[2020-03-01] MEDS: VANCOMYCIN 0.75 GM in IV D5W 250 ML IV SCH ×2 (03:01→23:57)
[2020-03-01] MEDS: IV D5W 1,000 ML IV PRN (05:46)
[2020-03-01 06:42] LABS: BASOPHILS % (AUTO) 0.2 % (0.0-2.0); EOSINOPHILS % (AUTO) 6.2 % (0.0-6.0); HEMATOCRIT 36 % (39-51); HEMOGLOBIN 11.2 g/dL (13.5-17.5); LYMPHOCYTES # (AUTO) 0.6 /CMM (0.8-4.8); LYMPHOCYTES % (AUTO) 15.7 % (20.0-44.0); MEAN CORPUSCULAR HGB CONC 32 g/dl (31.0-36.0); MEAN CORPUSCULAR VOLUME 98 fL (80-96); MONOCYTES # (AUTO) 0.1 /CMM (0.1-1.30); MONOCYTES % (AUTO) 2.4 % (2.0-12.0); NEUTROPHILS # (AUTO) 2.9 /CMM (1.8-8.9); NEUTROPHILS % (AUTO) 75.5 % (43.0-81.0); RED BLOOD CELL COUNT(AUTO) 3.64 MIL/uL (4.5-6.0); WHITE BLOOD COUNT (AUTO) 3.8 K/uL (4.3-11.0)
[2020-03-01 06:54] LABS: ALBUMIN 1.5 g/dL (3.4-5.0); BILIRUBIN,TOTAL 0.5 mg/dL (0.2-1.0); MAGNESIUM 2.4 mg/dL (1.8-2.4); PHOSPHORUS 2.5 mg/dL (2.5-4.9); POTASSIUM 3.2 mmol/L (3.5-5.1); TOTAL PROTEIN, SERUM 5.4 g/dL (6.4-8.2)
[2020-03-01 07:00] LABS: PLATELET COUNT (AUTO) 35 /CMM (150-450)
--- NOTE | 2020-03-01 07:15 | NUR ---
MS RN NOTES PATIENT IN BED AWAKE NON VERBAL NO ACUTE DISTRESS NOTED. NO SOB NOTED. BREATHING UNLABORED. DENIED ANY PAIN. IV ACCESS PATENT AND INTACT, NO REDNESS, NO SWELLING NOTED. HEAD OF BED ELEVATED. SAFETY MEASURES IN PLACE. CALL LIGHT WITHIN REACH. WILL CONTINUE TO MONITOR ACCORDINGLY.
[2020-03-01] MEDS: PANTOPRAZOLE 40 MG TABLET.DR PO SCH (07:30)
[2020-03-01] MEDS: ALBUTEROL FS 2.5 MG/0.5 ML VIAL.NEB NEB SCH ×3 (07:52→19:40)
[2020-03-01] MEDS: IPRATROPIUM NEB FS 0.5 MG/2.5 ML AMPUL.NEB NEB SCH ×3 (07:52→19:40)
[2020-03-01 08:00] VITALS: BP 120/67
[2020-03-01] MEDS: POTASSIUM CL. PREMIX PERIPHER. 50 ML IV SCH ×4 (08:52→14:11)
[2020-03-01 08:54] LABS: BAND % (MANUAL) 1 % (0.0-5.0); EOSINOPHILS % (MANUAL) 3 % (0-4); LYMPHOCYTES % (MANUAL) 23 % (16-48); MONOCYTES % (MANUAL) 4 % (0-11.0); NEUTROPHILS % (MANUAL) 69 (42-76)
[2020-03-01] MEDS: METOPROLOL TARTRATE 25 MG TABLET PO SCH ×2 (09:00→17:00)
[2020-03-01] MEDS: FINASTERIDE (5 MG) 5 MG TABLET PO SCH (09:00)
[2020-03-01] MEDS: ASPIRIN 81 MG TAB.CHEW PO SCH (09:00)
[2020-03-01] MEDS: MULTIVIT W/MINERALS 1 TAB TABLET PO SCH (09:00)
[2020-03-01] MEDS: AMLODIPINE BESYLATE 10 MG TABLET PO SCH (09:00)
[2020-03-01] MEDS: QUETIAPINE FUMARATE 25 MG TABLET PO SCH ×2 (09:00→21:24)
[2020-03-01] MEDS: FAMOTIDINE/PF INJ 20 MG/2 ML VIAL IV SCH ×2 (09:15→21:26)
[2020-03-01] MEDS: CITRIC ACID/SODIUM CITRATE (BICITRA)15 ML UDC PO SCH ×3 (13:00→21:00)
[2020-03-01 16:00] VITALS: BP 107/65
--- NOTE | 2020-03-01 19:00 | NUR ---
MS RN NOTES PATIENT IN BED AWAKE, NON VERBAL NO ACUTE DISTRESS NOTED. NO SOB NOTED. BREATHING UNLABORED. DENIED ANY PAIN. IV ACCESS PATENT AND INTACT, NO REDNESS, NO SWELLING NOTED. HEAD OF BED ELEVATED.NEEDS ATTENDED AND ANTICIPATED. SAFETY MEASURES IN PLACE. CALL LIGHT WITHIN REACH. WILL ENDORSE TO NIGHT NURSE FOR CONTINUITY OF CARE.
[2020-03-01 20:00] VITALS: BP 101/55
--- NOTE | 2020-03-01 20:36 | NUR ---
MS RN OPENING NOTE Patient awake in bed, non-verbal. HOB elevated. Breathing even, clear, unlabored on 4LPM NC saturating @ 94%. No acute distress or SOB. Skin is warm, pink, dry, appropriate for ethnicity. Stage 2 ulcer noted on sacrum, dressing clean and dry. IV site JUSTIN midline, patent and intact running D5W @ 175 ml/hr. No signs of redness or infiltration. Abdomen soft, non-tender. BS hypoactive all quadrants. Patient is NPO. Davidson catheter in place. Urine output clear and yellow. Bed in low position, wheels locked, side rails up x2, call light within reach.
[2020-03-01] MEDS: ATORVASTATIN 10 MG TABLET PO SCH (21:24)
[2020-03-01] MEDS: MIRTAZAPINE 15 MG TABLET PO SCH (21:24)
[2020-03-01] MEDS: TAMSULOSIN 0.4 MG CAP.SR.24H PO SCH (21:24)
[2020-03-02] MEDS: PIPERACILLIN /TAZOBACTAM 3.375 G in IV D5W 50 ML IV SCH ×3 (01:08→12:32)
[2020-03-02] MEDS: ALBUTEROL FS 2.5 MG/0.5 ML VIAL.NEB NEB SCH ×4 (01:48→19:40)
[2020-03-02] MEDS: IPRATROPIUM NEB FS 0.5 MG/2.5 ML AMPUL.NEB NEB SCH ×4 (01:48→19:40)
[2020-03-02] MEDS: IV D5W 1,000 ML IV PRN ×2 (05:09→15:46)
[2020-03-02] MEDS: PANTOPRAZOLE 40 MG TABLET.DR PO SCH (07:06)
[2020-03-02 07:20] LABS: BASOPHILS % (AUTO) 0.2 % (0.0-2.0); EOSINOPHILS % (AUTO) 2.4 % (0.0-6.0); HEMATOCRIT 34 % (39-51); HEMOGLOBIN 10.9 g/dL (13.5-17.5); LYMPHOCYTES # (AUTO) 0.4 /CMM (0.8-4.8); LYMPHOCYTES % (AUTO) 11.1 % (20.0-44.0); MEAN CORPUSCULAR HGB CONC 32 g/dl (31.0-36.0); MEAN CORPUSCULAR VOLUME 97 fL (80-96); MONOCYTES # (AUTO) 0.1 /CMM (0.1-1.30); MONOCYTES % (AUTO) 2.9 % (2.0-12.0); NEUTROPHILS # (AUTO) 2.7 /CMM (1.8-8.9); NEUTROPHILS % (AUTO) 83.4 % (43.0-81.0); RED BLOOD CELL COUNT(AUTO) 3.54 MIL/uL (4.5-6.0); WHITE BLOOD COUNT (AUTO) 3.2 K/uL (4.3-11.0)
--- NOTE | 2020-03-02 07:35 | NUR ---
MS RN CLOSING NOTE Patient awake in bed, non-verbal. HOB elevated. Breathing even, clear, unlabored on 4LPM NC saturating @ 94%. No acute distress or SOB. Stage 2 ulcer noted on sacrum, dressing clean and dry. IV site JUSTIN midline, patent and intact running D5W @ 175 ml/hr. No signs of redness or infiltration. Patient is NPO. Davidson catheter in place. Urine output clear and yellow, 40 ml. Bed in low position, wheels locked, side rails up x2, call light within reach.
[2020-03-02 07:52] LABS: ALBUMIN 1.5 g/dL (3.4-5.0); BILIRUBIN,TOTAL 0.5 mg/dL (0.2-1.0); CALCIUM, SERUM 7.7 mg/dL (8.5-10.1); MAGNESIUM 2.2 mg/dL (1.8-2.4); PHOSPHORUS 3.6 mg/dL (2.5-4.9); POTASSIUM 3.2 mmol/L (3.5-5.1); TOTAL PROTEIN, SERUM 5.3 g/dL (6.4-8.2)
[2020-03-02 08:00] VITALS: BP 94/56
[2020-03-02] MEDS: FAMOTIDINE/PF INJ 20 MG/2 ML VIAL IV SCH ×3 (08:36→21:00)
[2020-03-02] MEDS: ASPIRIN 81 MG TAB.CHEW PO SCH (08:36)
[2020-03-02] MEDS: CITRIC ACID/SODIUM CITRATE (BICITRA)15 ML UDC PO SCH ×4 (08:36→21:00)
[2020-03-02] MEDS: METOPROLOL TARTRATE 25 MG TABLET PO SCH ×2 (08:36→16:49)
[2020-03-02] MEDS: AMLODIPINE BESYLATE 10 MG TABLET PO SCH (08:38)
[2020-03-02] MEDS: FINASTERIDE (5 MG) 5 MG TABLET PO SCH (08:38)
[2020-03-02] MEDS: QUETIAPINE FUMARATE 25 MG TABLET PO SCH ×2 (08:38→21:54)
[2020-03-02] MEDS: MULTIVIT W/MINERALS 1 TAB TABLET PO SCH (08:38)
[2020-03-02 08:45] LABS: PLATELET COUNT (AUTO) 32 /CMM (150-450)
[2020-03-02 08:48] LABS: BAND % (MANUAL) 18 % (0.0-5.0); LYMPHOCYTES % (MANUAL) 18 % (16-48); METAMYELOCYTES % 3 % (0-0); MONOCYTES % (MANUAL) 8 % (0-11.0); MYELOCYTES % 3 % (0-0); NEUTROPHILS % (MANUAL) 50 (42-76)
--- NOTE | 2020-03-02 08:48 | NUR ---
m/s diesel machinist: notes lab called re: platelet count of 32. anirudh (acnp) notified and made aware.
--- NOTE | 2020-03-02 09:34 | NUR ---
WOUND CARE CONSULT: PT SEEN FOR SACRAL DEEP TISSUE INJURY IN EVOLUTION OVER PREVIOUS SCARRING. PER NURSING STAFF, PT HAS BEEN UNCOOPERATIVE AT TIMES WITH REPOSITIONING. RECOMMENDATIONS MADE FOR SKIN PROTECTION AND WOUND CARE. DISCUSSED WITH NURSING STAFF. PT IS VERY THIN AND BONY. DIETARY CONSULT IN PLACE. IN AGREEMENT WITH PLAN OF CARE. Addendum: 03/02/20 at 0936 by CRUZITO ZEPEDA WNDNU Amended: Links added.
--- NOTE | 2020-03-02 09:40 | NUR ---
m/s paint roller covers supervisor: notes while checking pt's skin noted with a smear bowel movement with blood, not enough to collect. anirudh (acnp) notified and made aware.
[2020-03-02] MEDS ORDERED: ATOR10TA PO (09:53)
[2020-03-02] MEDS ORDERED: VANC1FRO2 IV (09:53)
[2020-03-02] MEDS ORDERED: PIPE3.379 IV (09:53)
--- NOTE | 2020-03-02 10:24 | NUR ---
m/s train operations manager: md visit seen by anirudh (acnp) with order to discharge to another acute hospital per insurance. order acknowledged. case management to make arrangement.
[2020-03-02] MEDS: POTASSIUM CL. PREMIX PERIPHER. 50 ML IV SCH ×4 (10:30→14:01)
--- NOTE | 2020-03-02 14:25 | NUR ---
M/S SENIOR FIREWALL ENGINEER: ID F/U SEEN BY TAL STEWARD) WITH NEW ORDERS. ORDERS ACKNOWLEDGED.
[2020-03-02] MEDS ORDERED: CEFEPIME 1 GM in IV D5W 50 ML IV SCH (14:30)
[2020-03-02] MEDS: CEFEPIME 2 GM in IV D5W 100 ML IV SCH (15:50)
[2020-03-02 16:00] VITALS: BP 154/109
--- NOTE | 2020-03-02 16:15 | NUR ---
m/s wild life manager: notes krunal () called for update and provided, is not aware of discharge planning to another acute hospital, stated, "my has good insurance." informed her that i will have case management call her joanne. spoke to anne (theresa) and provided 's phone number.
--- NOTE | 2020-03-02 16:49 | NUR ---
m/s manager of radiology: notes meds held due to pt unable to swallow. md aware. will continue to monitor.
--- NOTE | 2020-03-02 19:14 | NUR ---
m/s interstate planner: notes report given to perla (rn) for continuity of care.
[2020-03-02 20:00] VITALS: BP 110/69
--- NOTE | 2020-03-02 20:00 | NUR ---
MS RN OPENING NOTES SEEN PATIENT IN THE ROOM, AWAKE, PATIENT IS ALERT AND ORIENTED X1, NO COMPLAINS OF PAIN, NO FACIAL GRIMACE NOTED. MIDLINE ON PETR NOTED. KEPT PATIENT WARM DRY AND COMFORTABLE. WILL CONTINUE TO MONITOR PATIENT.
[2020-03-02] MEDS: ATORVASTATIN 10 MG TABLET PO SCH (21:54)
[2020-03-02] MEDS: TAMSULOSIN 0.4 MG CAP.SR.24H PO SCH (21:54)
[2020-03-02] MEDS: MIRTAZAPINE 15 MG TABLET PO SCH (21:54)
[2020-03-03] MEDS: ALBUTEROL FS 2.5 MG/0.5 ML VIAL.NEB NEB SCH ×4 (01:40→20:25)
[2020-03-03] MEDS: IPRATROPIUM NEB FS 0.5 MG/2.5 ML AMPUL.NEB NEB SCH ×4 (01:40→20:25)
[2020-03-03] MEDS: CEFEPIME 2 GM in IV D5W 100 ML IV SCH ×2 (03:29→15:48)
--- NOTE | 2020-03-03 06:20 | NUR ---
MS RN CLOSING NOTES: PATIENT IN THE ROOM, AWAKE MOST OF THE TIME IN THIS SHIFT. NO COMPLAINS OF PAIN, NO FACIAL GRIMACE NOTED. PATIENT TURNED TO SIDES Q2H. KEPT PATIENT WARM DRY AND COMFORTABLE. ADMINISTERED ORDERED MEDICATIONS. SAFETY AND FALL PRECAUTIONS OBSERVED. AWAITING PLACEMENT IN ANOTHER ACUTE HOSPITAL SETTING. WILL FOLLOW UP TODAY. WILL ENDORSE PATIENT TO DAY SHIFT NURSE FOR CONTINUITY OF CARE.
[2020-03-03] MEDS: PANTOPRAZOLE 40 MG TABLET.DR PO SCH (06:32)
[2020-03-03] MEDS: IV D5W 1,000 ML IV PRN ×3 (06:36→23:06)
--- NOTE | 2020-03-03 07:15 | NUR ---
ms rn received on bed, non verbal, oriented to name,came in w/ sepsis.not in any distress at this time.will monitor patient all needs attended.
[2020-03-03 07:44] LABS: CALCIUM, SERUM 7.8 mg/dL (8.5-10.1); POTASSIUM 3.7 mmol/L (3.5-5.1)
[2020-03-03 08:00] VITALS: BP 91/52
[2020-03-03] MEDS: QUETIAPINE FUMARATE 25 MG TABLET PO SCH ×2 (09:00→22:00)
[2020-03-03] MEDS: METOPROLOL TARTRATE 25 MG TABLET PO SCH ×2 (09:00→17:00)
[2020-03-03] MEDS: FINASTERIDE (5 MG) 5 MG TABLET PO SCH (09:00)
[2020-03-03] MEDS: CITRIC ACID/SODIUM CITRATE (BICITRA)15 ML UDC PO SCH ×4 (09:00→21:00)
[2020-03-03] MEDS: MULTIVIT W/MINERALS 1 TAB TABLET PO SCH (09:00)
[2020-03-03] MEDS: ASPIRIN 81 MG TAB.CHEW PO SCH (09:00)
[2020-03-03] MEDS: AMLODIPINE BESYLATE 10 MG TABLET PO SCH (09:00)
--- NOTE | 2020-03-03 09:00 | NUR ---
ms prater on npo, due meds given,tolerated well.
[2020-03-03] MEDS: FAMOTIDINE/PF INJ 20 MG/2 ML VIAL IV SCH ×2 (09:17→22:37)
--- NOTE | 2020-03-03 11:00 | NUR ---
ms moi was seen by dr. arora, w/ orders made and carried out.
[2020-03-03 16:00] VITALS: BP 116/58
--- NOTE | 2020-03-03 18:01 | NUR ---
ms rn on bed, all needs attended.
[2020-03-03 18:08] LABS: IRON, SERUM 79 ug/dl (50-175); TOTAL IRON BINDING CAPACITY 99 ug/dl (250-450)
--- NOTE | 2020-03-03 19:20 | NUR ---
RN notes Pt is resting in bed comfortably. Pt is non verbal and able to open eyes. Respiration is normal in 3 L NC. No SOB. No S/S of distress noted. PETR midline is clean, intact and infusing well. Davidson cath is intact and draining yellow urine. Safety precautions is maintained. Bed at low position, brakes locked, side rails up X3 and call light is within reach. Will continue to monitor.
[2020-03-03 20:00] VITALS: BP 100/57
[2020-03-03] MEDS: TAMSULOSIN 0.4 MG CAP.SR.24H PO SCH (22:00)
[2020-03-03] MEDS: MIRTAZAPINE 15 MG TABLET PO SCH (22:00)
[2020-03-03] MEDS: ATORVASTATIN 10 MG TABLET PO SCH (22:00)
[2020-03-04] MEDS: IPRATROPIUM NEB FS 0.5 MG/2.5 ML AMPUL.NEB NEB SCH ×4 (01:32→20:28)
[2020-03-04] MEDS: ALBUTEROL FS 2.5 MG/0.5 ML VIAL.NEB NEB SCH ×4 (01:33→20:28)
[2020-03-04] MEDS: CEFEPIME 2 GM in IV D5W 100 ML IV SCH ×2 (02:15→14:29)
[2020-03-04] MEDS: IV D5W 1,000 ML IV PRN ×3 (04:16→15:18)
--- NOTE | 2020-03-04 07:20 | NUR ---
RN closing notes Pt is resting in bed comfortably. Pt is non verbal and able to open eyes. Respiration is normal in 3 L NC. No SOB. No S/S of distress noted. PETR midline is clean, intact and infusing well. Davidson cath is intact and draining yellow urine 40 ml. Wound care provided as ordered. Safety precautions is maintained. Bed at low position, brakes locked, side rails up X3 and call light is within reach. Will endorse to morning nurse for CINDI.
[2020-03-04] MEDS: PANTOPRAZOLE 40 MG TABLET.DR PO SCH (07:30)
--- NOTE | 2020-03-04 07:31 | NUR ---
MS RN NOTES PATIENT RECEIVED IN BED RESTING COMFORTABLY. ALERT AND ORIENTED TO LIGHT TOUCH, ABLE TO OPEN EYES, NON-VERBAL. PATIENT ON 3 LITERS OXYGEN WITH NON-LABORED BREATHING, AND NO SOB NOTED AT THIS TIME. PATIENT SKIN WARM AND DRY TO TOUCH, IV ACCESS INTACT AND PATENT ON LEFT UPPER ARM. IV FLUIDS CURRENTLY INFUSING. SANDS CATHETER IN PLACE. SAFETY PRECAUTIONS IMPLEMENTED WITH BED LOCKED, BED ALARM ON, BED IN THE LOWEST POSITION, BILATERAL SIDE RAILS UP, AND CALL LIGHT WITHIN EASY REACH OF THE PATIENT. WILL CONTINUE TO MONITOR PATIENT.
[2020-03-04 08:00] VITALS: BP 99/65
[2020-03-04 08:12] LABS: IMMUNOGLOBULIN G, SERUM 1004 mg/dL (603-1613); IMMUNOGLOBULIN M, SERUM 210 mg/dL (15-143)
[2020-03-04 08:33] LABS: BASOPHILS % (AUTO) 0.4 % (0.0-2.0); EOSINOPHILS % (AUTO) 0.8 % (0.0-6.0); HEMATOCRIT 35 % (39-51); HEMOGLOBIN 11.4 g/dL (13.5-17.5); LYMPHOCYTES # (AUTO) 0.4 /CMM (0.8-4.8); LYMPHOCYTES % (AUTO) 6.9 % (20.0-44.0); MEAN CORPUSCULAR HGB CONC 33 g/dl (31.0-36.0); MEAN CORPUSCULAR VOLUME 94 fL (80-96); MONOCYTES % (AUTO) 0.9 % (2.0-12.0); NEUTROPHILS # (AUTO) 4.7 /CMM (1.8-8.9); RED BLOOD CELL COUNT(AUTO) 3.69 MIL/uL (4.5-6.0); WHITE BLOOD COUNT (AUTO) 5.2 K/uL (4.3-11.0)
[2020-03-04 08:43] LABS: CALCIUM, SERUM 7.7 mg/dL (8.5-10.1); CREATININE 1.1 mg/dL (0.6-1.3); PHOSPHORUS 3.1 mg/dL (2.5-4.9); POTASSIUM 3.6 mmol/L (3.5-5.1)
[2020-03-04 08:55] LABS: PLATELET COUNT (AUTO) 25 /CMM (150-450)
[2020-03-04] MEDS: ASPIRIN 81 MG TAB.CHEW PO SCH (09:00)
[2020-03-04] MEDS: METOPROLOL TARTRATE 25 MG TABLET PO SCH ×2 (09:00→16:16)
[2020-03-04] MEDS: FINASTERIDE (5 MG) 5 MG TABLET PO SCH (09:00)
[2020-03-04] MEDS: AMLODIPINE BESYLATE 10 MG TABLET PO SCH (09:00)
[2020-03-04] MEDS: QUETIAPINE FUMARATE 25 MG TABLET PO SCH ×2 (09:00→22:00)
[2020-03-04] MEDS: MULTIVIT W/MINERALS 1 TAB TABLET PO SCH (09:00)
[2020-03-04] MEDS: CITRIC ACID/SODIUM CITRATE (BICITRA)15 ML UDC PO SCH ×4 (09:00→21:00)
[2020-03-04 09:12] LABS: IMMUNOGLOBULIN A, SERUM 239 mg/dL (61-437)
[2020-03-04] MEDS: FAMOTIDINE/PF INJ 20 MG/2 ML VIAL IV SCH ×2 (09:17→23:57)
[2020-03-04 16:00] VITALS: BP 103/58
--- NOTE | 2020-03-04 16:00 | NUR ---
MS RN NOTES CALLED PATIENT'S KAROL, , INFORMING ABOUT PLAN OF CARE ABOUT POSSIBLE PEG TUBE PLACEMENT, AND THE NEED FOR CONSENTS. PATIENT'S INITIATED SHE WOULD LIKE TO SPEAK TO THE MD AND THINK ABOUT THE PROS AND CONS OF THE PEG TUBE PLACEMENT, INFORMED AND NOTIFIED DR. PATRICIA ENG AND PROVIDED , KAROL'S NUMBER.
[2020-03-04 16:12] LABS: *ANA ANTI-CENTROMERE B AB <0.2 AI (0.0-0.9); *ANA ANTI-DNA(DS) AB, QN <1 IU/mL (0-9); *ANA ANTI-JO-1 <0.2 AI (0.0-0.9); *ANA ANTICHROMATIN ANTIBODY <0.2 AI (0.0-0.9); *ANA RNP ANTIBODIES <0.2 AI (0.0-0.9); *ANA SJOGREN'S ANTI-SS-A <0.2 AI (0.0-0.9); *ANA SJOGREN'S ANTI-SS-B <0.2 AI (0.0-0.9); *ANAANTI-SCLERODERMA-70 AB <0.2 AI (0.0-0.9); *ANASMITH AB <0.2 AI (0.0-0.9)
--- NOTE | 2020-03-04 16:30 | NUR ---
MS RN NOTES PATIENT COOL TO TOUCH, AND UNABLE TO CAPTURE TEMPERATURE ORALLY, AXILLARY AND RECTALLY. APPLIED HEATING MEASURES, WARM BLANKETS AND HOT PACKETS. WILL CONTINUE TO MONITOR AND REASSESS PATIENT TEMPERATURE.
--- NOTE | 2020-03-04 17:00 | NUR ---
MS RN NOTES ORDERED EMANI HUGGER AND WILL APPLY TO PATIENT WHEN RECEIVED, AND CONTINUE TO MONITOR PATIENT TEMPERATURE.
--- NOTE | 2020-03-04 18:55 | NUR ---
MS RN NOTES INFORMED DR. PATRICIA ENG, PATIENT TEMPERATURE IS 84.2 RECTALLY, AND STILL COOL TO TOUCH, BLOOD PRESSURE 113/50, O2 SATURATION AT 95% ON 3 LITERS, RR 20, AND HEART RATE 56. PER MD, OKAY TO TRANSFER TO ICU.
[2020-03-04 19:00] VITALS: BP 113/50
--- NOTE | 2020-03-04 19:15 | NUR ---
MS RN NOTES INFORMED HOSPITALIST ABE MISHRA DNP ABOUT TRANSFERRING PATIENT TO ICU, STATES TO HOLD PATIENT IN MED SURG AND CONTINUE TO MONITOR TEMPERATURE RECTALLY AND TO INFORM ABOUT LATEST TEMPERATURE. CHARGE NURSE MADE AWARE WELL. HELD TRANSFER AND WILL CONTINUE TO MONITOR TEMPERATURE AT THIS TIME.
--- NOTE | 2020-03-04 19:45 | NUR ---
MS RN NOTES PATIENT IN BED RESTING COMFORTABLY, NON-VERBAL, ABLE TO OPEN EYES. ON NASAL CANNULA 3 LITERS, WITH NO SIGNS OF RESPIRATORY DISTRESS AT THIS TIME, WITH NON-LABORED BREATHING, AND NO SOB NOTED. PATIENT HAS BEAR HUGGER AT THIS TIME , RECTAL TEMPERATURE 85.4F. SKIN COOL TO TOUCH. PATIENT IV ACCESS INTACT AND PATENT INFUSING 75ml/hr OF D5W. SANDS CATHETER IN PLACE DRAINING URINE OUTPUT BY GRAVITY. WOUND CARE DONE ORDERED. MET ALL OF PATIENT'S NEEDS. SAFETY PRECAUTIONS IMPLEMENTED WITH BED LOCKED, BILATERAL SIDE RAILS UP, BED ALARM ON, AND CALL LIGHT WITHIN EASY REACH. WILL ENDORSE PLAN OF CARE TO UPCOMING RN.
[2020-03-04 20:00] VITALS: BP 89/57
--- NOTE | 2020-03-04 21:00 | NUR ---
INFORMED DR MISHRA RE: VITALS- BP=89/48, HR=65, TEMP PER RECTAL=85.2.
--- NOTE | 2020-03-04 21:09 | NUR ---
INFORMED CHARGE NURSE ALFREDO RE: CALLED ICU FOR THE BLOOD WARMER MACHINE, ONE IS IN USE AT THIS TIME.
--- NOTE | 2020-03-04 21:10 | NUR ---
DR HIGUERA CAME AND SEEN THE PATIENT, ORDERED STAT ABG, ENTOMOLOGY PROFESSOR CALLED THE RT.
--- NOTE | 2020-03-04 21:11 | NUR ---
CHARGE NURSE ALFREDO WILL CALL THE NURSING SUP FOR THE WARMER MACHINE.
--- NOTE | 2020-03-04 21:39 | NUR ---
WARM NS 500CC BOLUS INFUSING NOW THRU WARMER MACHINE FROM ER. STAT ABG DONE, WAITING FOR THE RESULT.
--- NOTE | 2020-03-04 21:53 | NUR ---
TEMP=87.5/RECTAL.
--- NOTE | 2020-03-04 21:54 | NUR ---
ABG RESULTS SENT TO DR HIGUERA. WILL ORDER A REPEAT ABG NOW, RT AWARE.
[2020-03-04] MEDS: MIRTAZAPINE 15 MG TABLET PO SCH (22:00)
[2020-03-04] MEDS: ATORVASTATIN 10 MG TABLET PO SCH (22:00)
[2020-03-04] MEDS: TAMSULOSIN 0.4 MG CAP.SR.24H PO SCH (22:00)
[2020-03-04 22:11] LABS: ABG BASE EXCESS -10.6 mmol/L; ABG OXYGEN SATURATION 94.6 % (92.0-98.5); ABG PCO2 13.5 mmHg (35.0-45.0); ABG PH 7.492 (7.350-7.450); ABG PO2 70.5 mmHg (75.0-100.0); AaDO2 141.9 mmHg; COHb 0.3 % (0.5-1.5); O2Hb 94.3 % (94.0-97.0); SITE, ABG Right Radial; VENT MODE, BG Nasal Cannula
--- NOTE | 2020-03-04 22:15 | NUR ---
BP=99/59, AFTER 500 CC WARM NS BOLUS, INFORMED DR HIGUERA. REPEAT ABG DONE, WAITING FOR THE RESULTS.
--- NOTE | 2020-03-04 22:17 | NUR ---
Increased to 5LPM on Nasal Cannula due to ABG PaO2 61. Will continue to monitor. Addendum: 03/05/20 at 0212 by MONTY GARCIA RT Amended: Links added.
[2020-03-04 22:23] LABS: ABG BASE EXCESS -11.3 mmol/L; ABG OXYGEN SATURATION 92.5 % (92.0-98.5); ABG PCO2 13.1 mmHg (35.0-45.0); ABG PH 7.484 (7.350-7.450); ABG PO2 61.9 mmHg (75.0-100.0); AaDO2 208.2 mmHg; COHb 0.3 % (0.5-1.5); MetHb 0.3 % (0.0-1.5); O2Hb 91.9 % (94.0-97.0); SITE, ABG Right Radial; VENT MODE, BG N/C 40%
--- NOTE | 2020-03-04 23:02 | NUR ---
REPEAT ABG RESULTS SENT TO DR HIGUERA.
--- NOTE | 2020-03-04 23:05 | NUR ---
Pt. put on simple mask 10LPM due to ABG PaO2 40. Will continue to monitor. Addendum: 03/05/20 at 0212 by MONTY GARCIA RT Amended: Links added.
[2020-03-04] MEDS ORDERED: IV NS 0.9% 1,000 ML IV ONE (23:30)
--- NOTE | 2020-03-04 23:39 | NUR ---
ONE LITER OF WARM NS BOLUS INFUSING.
[2020-03-05] VITALS (48 sets, daily range): BP systolic 79–123; BP diastolic 38–65
--- NOTE | 2020-03-05 00:37 | NUR ---
V/S CHECKED= TEMP.-92.6, HR-89, BP-107/65, O2 SAT ON 10L SIMPLE MASK-100%.
--- NOTE | 2020-03-05 00:40 | NUR ---
TEMPERATURE TAKEN RECTALLY.
--- NOTE | 2020-03-05 00:43 | NUR ---
PO MEDS NOT GIVEN, PATIENT IS VERY LETHARGIC. MD AWARE.
[2020-03-05] MEDS ORDERED: IV NS 0.9% 500 ML IV ONE (01:00)
[2020-03-05] MEDS: IPRATROPIUM NEB FS 0.5 MG/2.5 ML AMPUL.NEB NEB SCH ×4 (01:47→19:49)
[2020-03-05] MEDS: ALBUTEROL FS 2.5 MG/0.5 ML VIAL.NEB NEB SCH ×4 (01:47→19:49)
--- NOTE | 2020-03-05 02:25 | NUR ---
PATIENT'S URINE OUTPUT=50 ML. BP-97/61 AFTER 500ML BOLUS, HR-105, OIL WELL LOGGER DAVIDA MADE AWARE, CHARGE NURSE MADE AWARE.
--- NOTE | 2020-03-05 02:40 | NUR ---
500 ML WARM NS BOLUS IS INFUSING.
[2020-03-05] MEDS: CEFEPIME 2 GM in IV D5W 100 ML IV SCH (02:53)
--- NOTE | 2020-03-05 04:33 | NUR ---
INFORMED COLOR DEVELOPER DAVIDA RE: O2 SAT 91% ON 10L MASK, RESPIRATION OF 28, AND USING ACCESSORY MUSCLE. TEMP=97.5 PER RECTAL. YJ=271. CALLED RT MONTY FOR THE BREATHING TREATMENT NOW AND PUT THE PATIENT ON NON-REBREATHER MASK, AND ABG AT 0530.
--- NOTE | 2020-03-05 05:02 | NUR ---
Pt. given stat breathing treatment per LUMP MAKER order. Pt. put on NRB mask 15LPM post breathing treatment per LUMP MAKER order. Will continue to monitor. Addendum: 03/05/20 at 0504 by MONTY GARCIA RT Amended: Links added.
[2020-03-05 06:12] LABS: ABG BASE EXCESS -11.1 mmol/L; ABG OXYGEN SATURATION 91.5 % (92.0-98.5); ABG PCO2 17.2 mmHg (35.0-45.0); ABG PH 7.412 (7.350-7.450); ABG PO2 63.2 mmHg (75.0-100.0); AaDO2 632.6 mmHg; COHb 0.3 % (0.5-1.5); MetHb 0.2 % (0.0-1.5); SITE, ABG Right Radial; VENT MODE, BG NRB
--- NOTE | 2020-03-05 06:53 | NUR ---
0530 ABG RESULTS WAS SENT TO CRALOS HIGUERA.
--- NOTE | 2020-03-05 07:00 | NUR ---
RUG CLEANER CLOSING NOTES: PATIENT IN BED, VERY LETHARGIC, STILL WITH BEAR HUGGER ON. LATEST TEMP IS 97.5 PER RECTAL. ON NON-REBREATHER MASK AT 15ML, SATTING ON 94-95%.
[2020-03-05] MEDS: PANTOPRAZOLE 40 MG TABLET.DR PO SCH (07:30)
--- NOTE | 2020-03-05 07:47 | NUR ---
PATTERNMAKER PLASTICS NOTE PATIENT IN BED RESTING COMFORTABLY. RECEIVED PATIENT ON NON REBREATHER 15L SATURATING 95% SPO2. PATIENT BP WAS 104/59. PATIENT ON CARDIAC MONITORING READING SINUS RHYTHM HR 97. PATIENT WITH BEAR HUGGER IN PLACE. PATIENT BED ALARM IS ON. SAFETY PRECAUTIONS IN PLACE. PATIENT BED IS LOCKED AND IN LOWEST POSITION. CALL LIGHT WITHIN REACH. WILL CONTINUE TO MONITOR.
--- NOTE | 2020-03-05 08:40 | NUR ---
GUIDE NOTE PATIENT TRANSFERRED TO ROOM 117 IN [place]. PATIENT TO HAVE PCR AND RAPID COVID TEST, ENDORSED TO ROSANNA OLSON TO OBTAIN. PATIENT WAS ON 15L NON REBREATHER SATURATING 95% SPO2. REPORT GIVEN AND TRANSFERRED ALL CARE TO ROSANNA OLSON FOR CINDI. DR. GOMEZ MADE AWARE.
--- NOTE | 2020-03-05 08:40 | NUR ---
RN NOTES RECEIVED PT FROM 3W. PT IN DISTRESS. AGONAL BREATHING. INFORMED DR. PETERS. ORDERED TO INTUBATE AND TRANSFER TO ICU. ORDERS CARRIED OUT
[2020-03-05] MEDS: FINASTERIDE (5 MG) 5 MG TABLET PO SCH (09:00)
[2020-03-05] MEDS: METOPROLOL TARTRATE 25 MG TABLET PO SCH ×2 (09:00→17:00)
[2020-03-05] MEDS: FAMOTIDINE/PF INJ 20 MG/2 ML VIAL IV SCH ×2 (09:00→21:35)
[2020-03-05] MEDS: QUETIAPINE FUMARATE 25 MG TABLET PO SCH ×3 (09:00→22:00)
[2020-03-05] MEDS: AMLODIPINE BESYLATE 10 MG TABLET PO SCH (09:00)
[2020-03-05] MEDS: MULTIVIT W/MINERALS 1 TAB TABLET PO SCH (09:00)
[2020-03-05] MEDS: CITRIC ACID/SODIUM CITRATE (BICITRA)15 ML UDC PO SCH ×4 (09:00→21:35)
[2020-03-05 09:33] LABS: THYROID STIMULATING HORMONE 3.432 uIU/mL (0.358-3.74)
--- NOTE | 2020-03-05 09:55 | NUR ---
LAWN SERVICE MANAGER NOTES GET PATIENT TRANSFERRED FROM [place] AFTER COLD BLUE CODE, AND INTUBATED DX OF SEPSIS, RESPIRATORY FAILURE. PATIENT ON MECHANICAL VENTILATOR, AC- 20, TV-450, PEEP-0, FIO2-50, EET SIZE 7.5/30, PATIENT SR-87 WITH ACCELERATED JUNCTIONAL RHYTHM, BP-97/51, T-98.2 AXILIARY, R-32, P-87. 02-100. SKIN ASSESSMENT DONE , SACRAL WOUND PICTURE TAKEN, APPLIED EMULSION AND COVERED WITH MEPILEX, EDEMA BLE, PITTING, AND BOTH ARM PITTING EDEMA ELEVATED USING PILLOWS . PATIENT TOTAL CARE. NEEDS ATTENDED AND ANTICIPATED, SEEN HOSPITALIST Dr ENG NO NEW ORDER. SANDS CATHETER INTACT NO OUTPUT AT THIS TIME. CALL LIGHT WITHIN TO REACH, BED LACKED. SAFETY PRECAUTION MAINTAINED ALL THE TIME. WILL MONITOR.
[2020-03-05 10:05] LABS: BASOPHILS % (AUTO) 0.2 % (0.0-2.0); EOSINOPHILS % (AUTO) 0.6 % (0.0-6.0); HEMATOCRIT 36 % (39-51); LYMPHOCYTES # (AUTO) 0.3 /CMM (0.8-4.8); LYMPHOCYTES % (AUTO) 3.1 % (20.0-44.0); MEAN CORPUSCULAR HGB CONC 33 g/dl (31.0-36.0); MEAN CORPUSCULAR VOLUME 93 fL (80-96); MONOCYTES % (AUTO) 0.5 % (2.0-12.0); NEUTROPHILS # (AUTO) 8.5 /CMM (1.8-8.9); NEUTROPHILS % (AUTO) 95.6 % (43.0-81.0); RED BLOOD CELL COUNT(AUTO) 3.91 MIL/uL (4.5-6.0); WHITE BLOOD COUNT (AUTO) 8.9 K/uL (4.3-11.0)
[2020-03-05] MEDS ORDERED: IV D5/ 0.9% NACL 1,000 ML IV PRN (10:30)
[2020-03-05] MEDS: VANCOMYCIN 1 GM in IV D5W 250 ML IV ONE ×2 (10:38→11:24)
[2020-03-05] MEDS: HYDROCORTISONE SOD SUCCINATE 100 MG/2 ML VIAL IV SCH ×2 (10:44→21:35)
[2020-03-05 10:50] LABS: PLATELET COUNT (AUTO) 35 /CMM (150-450)
[2020-03-05 11:06] LABS: ABG BASE EXCESS -17.3 mmol/L; ABG OXYGEN SATURATION 91.7 % (92.0-98.5); ABG PCO2 31.2 mmHg (35.0-45.0); ABG PH 7.143 (7.350-7.450); ABG PO2 78.2 mmHg (75.0-100.0); AaDO2 603.6 mmHg; COHb 0.3 % (0.5-1.5); MetHb 0.4 % (0.0-1.5); O2Hb 91.1 % (94.0-97.0); PEEP,BG 0 cm H2O; SITE, ABG Left Radial; VT, ABG 450 mL
[2020-03-05 11:22] LABS: BAND % (MANUAL) 4 % (0.0-5.0); LYMPHOCYTES % (MANUAL) 3 % (16-48); MONOCYTES % (MANUAL) 6 % (0-11.0); NEUTROPHILS % (MANUAL) 87 (42-76)
[2020-03-05] MEDS ORDERED: PROPOFOL 100 ML IV PRN (11:30)
--- NOTE | 2020-03-05 12:00 | NUR ---
RN NOTES GET CALL FROM PATIENTS TS NAME ALBARO, AND WANTED TO SPEAK WITH HOSPITALIST WITH HUSBANDS CONDITION, AND CODE STATUS. 'S PHONE NUMBER GIVEN DR MILLER.
--- NOTE | 2020-03-05 12:19 | NUR ---
vent changes below made per dr. mccormick: AC 24 VT 500 ML RN NOTIFIED ON CHANGES. Addendum: 03/05/20 at 1220 by RADHIKA DURAN RT Amended: Links added.
--- NOTE | 2020-03-05 12:30 | NUR ---
rn notes STARTED DIPRIVAN 5 MCG AT THIS TIME, BECAUSE OF INTUBATED. WILL MONITORING.
[2020-03-05 14:27] LABS: ABG OXYGEN SATURATION 92.9 % (92.0-98.5); ABG PCO2 27.8 mmHg (35.0-45.0); ABG PH 7.199 (7.350-7.450); ABG PO2 76.2 mmHg (75.0-100.0); COHb 0.3 % (0.5-1.5); MetHb 0.2 % (0.0-1.5); O2Hb 92.4 % (94.0-97.0); PEEP,BG 0 cm H2O; SITE, ABG Left Radial; VT, ABG 500 mL
--- NOTE | 2020-03-05 14:40 | NUR ---
RN NOTES COLLECTED UA SPECIMEN FROM CATHETER PORT.
[2020-03-05] MEDS ORDERED: MEROPENEM 1 G in IV NS 0.9% 100 ML IV ONE (15:00)
[2020-03-05 15:44] LABS: BILIRUBIN,URINE SMALL (NEGATIVE); BLOOD, URINE LARGE Ery/uL (NEGATIVE); COLOR,URINE YELLOW (YELLOW); LEUKOCYTE ESTERASE ,URINE MODERATE (NEGATIVE); NITRITE, URINE NEGATIVE (NEGATIVE); PROTEIN,URINE >=300 mg/dl (NEGATIVE); UGLUCOSE NEGATIVE (NEGATIVE)
[2020-03-05 16:20] LABS: BILIRUBIN,DIRECT 0.2 mg/dL (0.0-0.2); BILIRUBIN,TOTAL 0.5 mg/dL (0.2-1.0)
[2020-03-05 16:22] LABS: BACTERIA,URINE 2+ /HPF (None Seen); SQUAMOUS EPITHELIAL CELL,UR 0-2 /HPF (None Seen); YEAST,URINE Few /HPF (None Seen)
--- NOTE | 2020-03-05 16:36 | NUR ---
rn notes get elaine from lab for lactic acid 2.[address] Logan no new order.
[2020-03-05 16:52] LABS: ALANINE AMINOTRANSFERASE 130 U/L (12-78); ALKALINE PHOSPHATASE 109 U/L (46-116); ASPARTATE AMINOTRANSFERASE 177 U/L (15-37); BILIRUBIN,TOTAL 0.4 mg/dL (0.2-1.0); CALCIUM, SERUM 7.2 mg/dL (8.5-10.1); CARBON DIOXIDE 14 mmol/L (21-32); CHLORIDE 110 mmol/L (98-107); CREATININE 2.1 mg/dL (0.6-1.3); GLUCOSE 137 mg/dL (74-106); MAGNESIUM 1.8 mg/dL (1.8-2.4); SODIUM SERUM 135 mmol/L (136-145); TOTAL PROTEIN, SERUM 5.3 g/dL (6.4-8.2); UREA NITROGEN, BLOOD 32 mg/dL (7-18)
[2020-03-05 16:57] LABS: ALBUMIN 1.2 g/dL (3.4-5.0); POTASSIUM 6.2 mmol/L (3.5-5.1)
--- NOTE | 2020-03-05 17:21 | NUR ---
RN NOTES GET SOULEYMANE FROM LAB FOR CRITICAL KCL 6.2, ALBUMIN 2.1, CALLED AND LEFT MASSAGE FOR SARAH, WAITING FOR RESPOND.
--- NOTE | 2020-03-05 18:45 | NUR ---
RN NOTES CALLED DR ENG AND GET TO ORDER STOP DIPRIVAN AND START LEVO BECAUSE OF DOPING BP. ORDER TAKEN AND CARRIED OUT.
--- NOTE | 2020-03-05 18:50 | NUR ---
RN NOTES GET CALL BACK FROM DR SMITH AND GET TO ORDER LASIX 40 MG IV PUSH X1, REPEAT LABS 2100 CBS, BMP, KAYEXALATE 60G X1, D51/2 NS WITH BICARB 2AMPS AT 150 ML/HR, BICARB 1 AMP X1 NOW IV PUSH, EKG STAT, NG TUBE PLACEMENT. ORDER TAKEN AND CARRIED OUT.
[2020-03-05] MEDS ORDERED: SODIUM BICARBONATE SYR 50 MEQ/50 ML DISP.SYRIN IV ONE (19:00)
[2020-03-05] MEDS ORDERED: FUROSEMIDE 40 MG/4 ML VIAL IV ONE (19:00)
[2020-03-05] MEDS ORDERED: SODIUM POLYSTYRENE SULFONATE 15 G/60 ML BOTTLE PO ONE (19:00)
--- NOTE | 2020-03-05 19:30 | NUR ---
RN NOTES CALLED PATIENT NAME ALBARO AND GET TO CONSENT FOR CENTRAL LINE INSERTION. CO SIGN WITH CHARGE NURSE NAME LIZBETH. ENDORSED ONCOMING NURSE FOLLOW PLAN OF CARE.
--- NOTE | 2020-03-05 19:50 | NUR ---
PT REC'D ORALLY INTUBATED VIA ETT 7.5 SECURED @ 25 CM LIP LINE ON [facility] VENT WITH THE SETTINGS OF AC 24, 500 100. Q6 BREATHING TX GIVEN PER MD'S ORDER. NO ADVERSE REACTION NOTED. SX DONE. ALARMS ARE SET AND AUDIBLE. VENT PLUGGED INTO RED OUTLET. AMBU BAG@ BEDSIDE. WILL CONTINUE TO MONITOR T/O THE SHIFT. Addendum: 03/06/20 at 0049 by AMBER MORTON RT AC 24,500, FIO2 100%
--- NOTE | 2020-03-05 20:00 | NUR ---
RN/ICU- DR. MISHRA HERE TO INSERT CENTRAL LINE TO PT. , USE FOR PRESSOR AND SEDATIVE HYPNOTIC. PHONE CONSENT OBTAINED EARLIER FROM KAROL WHO AGREED TO GIVE CONSENT.
[2020-03-05] MEDS: Sodium Bicarbonate 100 MEQ in IV D5/0.45 NACL 1,000 ML IV PRN (20:03)
--- NOTE | 2020-03-05 21:00 | NUR ---
RN/ICU- ON ASSESSMENT, NOTED PT. TO HAVE DTI ON RIGHT HEEL, PHOTO TAKEN, MEPILEX APPLIED TO AREA. CONTINUE TO ELEVATE EDMOND. HEELS AT ALL TIMES. WILL CONSULT PREPARER MAKING DEPARTMENT.
[2020-03-05] MEDS: NOREPINEPHRINE 8 MG in IV NS 0.9% 242 ML IV PRN (21:09)
--- NOTE | 2020-03-05 21:30 | NUR ---
RN/ICU-PT. BP-83/43, HR-68/MIN. LEVOPHED DRIP STARTED AT 0.1 MCG/KG/MIN. WILL TITRATE ACCORDINGLY PER PROTOCOL.
[2020-03-05] MEDS: TAMSULOSIN 0.4 MG CAP.SR.24H PO SCH (21:35)
[2020-03-05] MEDS: MIRTAZAPINE 15 MG TABLET PO SCH (21:36)
[2020-03-05] MEDS: ATORVASTATIN 10 MG TABLET PO SCH (21:36)
--- NOTE | 2020-03-05 21:37 | NUR ---
RN/ICU-SEROQUEL DOSE NOT GIVEN, PT INTUBATED, UNRESPONSIVE. WILL REASSESS AND MEDICATE APPROPRIATE.
[2020-03-05] MEDS: MEROPENEM 1 G in IV NS 0.9% 100 ML IV SCH (22:51)
[2020-03-05] MEDS: PROPOFOL 100 ML IV PRN (22:56)
--- NOTE | 2020-03-05 23:00 | NUR ---
RN/ICU- PT. STARTED GETTING TACHYPNEIC, RR-33/MIN.GRIMACING. DIPRIVAN DRIP STARTED AT 5 MCG/KG/MIN PER PROTOCOL.. WILL CONTINUE TO MONITOR CLOSELY TO ATTAIN SAS 3
[2020-03-05 23:10] LABS: BASOPHILS # (AUTO) 0.1 /CMM (0.0-0.2); BASOPHILS % (AUTO) 0.8 % (0.0-2.0); HEMATOCRIT 34 % (39-51); HEMOGLOBIN 10.8 g/dL (13.5-17.5); LYMPHOCYTES # (AUTO) 0.3 /CMM (0.8-4.8); LYMPHOCYTES % (AUTO) 1.5 % (20.0-44.0); MEAN CORPUSCULAR HGB CONC 32 g/dl (31.0-36.0); MEAN CORPUSCULAR VOLUME 96 fL (80-96); MONOCYTES # (AUTO) 0.1 /CMM (0.1-1.30); MONOCYTES % (AUTO) 0.6 % (2.0-12.0); NEUTROPHILS # (AUTO) 18.2 /CMM (1.8-8.9); NEUTROPHILS % (AUTO) 97.1 % (43.0-81.0); RED BLOOD CELL COUNT(AUTO) 3.54 MIL/uL (4.5-6.0); WHITE BLOOD COUNT (AUTO) 18.8 K/uL (4.3-11.0)
--- NOTE | 2020-03-05 23:13 | NUR ---
RN/ICU-PT. CONTINUE TO SATURATE 100%, FIO2 DECREASED TO 90% BY RT AMBER PER PROTOCOL WILL CONTINUE TO TITRATE NEEDED.
[2020-03-05] MEDS ORDERED: FUROSEMIDE 40 MG/4 ML VIAL ONE (23:20)
[2020-03-05 23:26] LABS: CALCIUM, SERUM 7.3 mg/dL (8.5-10.1); CARBON DIOXIDE 14 mmol/L (21-32); CHLORIDE 109 mmol/L (98-107); CREATININE 2.4 mg/dL (0.6-1.3); GLUCOSE 228 mg/dL (74-106); POTASSIUM 5.6 mmol/L (3.5-5.1); SODIUM SERUM 137 mmol/L (136-145); UREA NITROGEN, BLOOD 38 mg/dL (7-18)
[2020-03-05 23:40] LABS: PLATELET COUNT (AUTO) 27 /CMM (150-450)
--- NOTE | 2020-03-05 23:40 | NUR ---
RN/ICU- PT. NOW IS A "DNR/DNI" STATUS PER Cassius MOONEY.
[2020-03-05] MEDS: IV NS 0.9% 250 ML IV PRN (23:53)
[2020-03-06] VITALS (50 sets, daily range): BP systolic 74–127; BP diastolic 38–73
[2020-03-06 00:59] LABS: BAND % (MANUAL) 5 % (0.0-5.0); LYMPHOCYTES % (MANUAL) 2 % (16-48); MYELOCYTES % 1 % (0-0); NEUTROPHILS % (MANUAL) 92 (42-76)
[2020-03-06] MEDS: IPRATROPIUM NEB FS 0.5 MG/2.5 ML AMPUL.NEB NEB SCH ×4 (01:19→20:28)
[2020-03-06] MEDS: ALBUTEROL FS 2.5 MG/0.5 ML VIAL.NEB NEB SCH ×4 (01:20→20:28)
[2020-03-06] MEDS: Sodium Bicarbonate 100 MEQ in IV D5/0.45 NACL 1,000 ML IV PRN ×3 (04:37→20:25)
[2020-03-06] MEDS: HYDROCORTISONE SOD SUCCINATE 100 MG/2 ML VIAL IV SCH ×3 (04:39→21:17)
[2020-03-06 04:57] LABS: BASOPHILS % (AUTO) 0.3 % (0.0-2.0); HEMATOCRIT 28 % (39-51); HEMOGLOBIN 9.3 g/dL (13.5-17.5); LYMPHOCYTES # (AUTO) 0.3 /CMM (0.8-4.8); LYMPHOCYTES % (AUTO) 1.8 % (20.0-44.0); MEAN CORPUSCULAR HGB CONC 33 g/dl (31.0-36.0); MEAN CORPUSCULAR VOLUME 94 fL (80-96); MONOCYTES # (AUTO) 0.1 /CMM (0.1-1.30); MONOCYTES % (AUTO) 0.6 % (2.0-12.0); NEUTROPHILS # (AUTO) 14.8 /CMM (1.8-8.9); NEUTROPHILS % (AUTO) 97.3 % (43.0-81.0); RED BLOOD CELL COUNT(AUTO) 3.02 MIL/uL (4.5-6.0); WHITE BLOOD COUNT (AUTO) 15.2 K/uL (4.3-11.0)
[2020-03-06 05:01] LABS: CALCIUM, SERUM 6.6 mg/dL (8.5-10.1); CARBON DIOXIDE 15 mmol/L (21-32); CHLORIDE 110 mmol/L (98-107); CREATININE 2.5 mg/dL (0.6-1.3); GLUCOSE 301 mg/dL (74-106); POTASSIUM 4.6 mmol/L (3.5-5.1); SODIUM SERUM 140 mmol/L (136-145); UREA NITROGEN, BLOOD 39 mg/dL (7-18)
[2020-03-06 05:04] LABS: PLATELET COUNT (AUTO) 17 /CMM (150-450)
[2020-03-06 05:07] LABS: ALANINE AMINOTRANSFERASE 108 U/L (12-78); ALKALINE PHOSPHATASE 98 U/L (46-116); ASPARTATE AMINOTRANSFERASE 123 U/L (15-37); BILIRUBIN,TOTAL 0.4 mg/dL (0.2-1.0); MAGNESIUM 1.7 mg/dL (1.8-2.4); PHOSPHORUS 6.1 mg/dL (2.5-4.9); TOTAL PROTEIN, SERUM 4.4 g/dL (6.4-8.2)
[2020-03-06] MEDS: PROPOFOL 100 ML IV PRN ×2 (05:31→22:56)
[2020-03-06] MEDS ORDERED: VANCOMYCIN 0.75 GM in IV D5W 250 ML IV SCH (06:00)
--- NOTE | 2020-03-06 06:30 | NUR ---
RN/ICU-PT. REMAINS SEDATED ON DIPRIVAN AT 10MCG/KG/MIN. LEVOPHED AT 0.1 MCG/KG/MIN. TO KEEP SBP>90. ON THE VENT PER ETT. AC MODE, FIO2-70%, AFEBRILE. NO S/S OF PAIN OR DISCOMFORT.
[2020-03-06 06:42] LABS: BAND % (MANUAL) 1 % (0.0-5.0); LYMPHOCYTES % (MANUAL) 1 % (16-48); MONOCYTES % (MANUAL) 1 % (0-11.0); NEUTROPHILS % (MANUAL) 97 (42-76)
[2020-03-06] MEDS: MEROPENEM 1 G in IV NS 0.9% 100 ML IV SCH ×2 (06:49→18:18)
--- NOTE | 2020-03-06 08:00 | NUR ---
RN NOTES RECEIVED PATIENT IN THE BED INTUBATED, NO ACUTE RESPIRATORY DISTRESS, AC MODE , FIO2 70%, AFEBRILE PATIENT SEDATED AT THIS TIME WITH DIPRIVAN AT 10MCG/KG/MIN. LEVOPHED AT 0.1 MCG/KG/MIN. D51/2 NS WITH BICARB 2 UMP AT 150ML/HR, CENTRAL LINE INTACT ON RIGHT UPPER CHEST PATENT. NGT CLAMPED, ADMINISTERED SCHEDULED MEDICATION, PLACEMENT AND RESIDUAL CHECKED, SANDS DRAINING LOW OUTPUT, V/S MONITORING. DVT PUMP ON, PER NIGHT NURSE PATIENT HAS DTI ON RIGHT HEEL, WOUND CONSULT ORDERED, AND SEEN SAME TIME BY WOUND NURSE, KEEP ELEVATED, APPLIED MEPILEX, ALSO ORDERED DVT PUMP. ASSIST TURN AND REPOSTION Q 2HR. WILL MONITORING
[2020-03-06 08:21] LABS: D-DIMER 10.6 mg/L(FEU (0.17-0.50)
[2020-03-06 08:40] LABS: ABG BASE EXCESS -9.7 mmol/L; ABG OXYGEN SATURATION 95.9 % (92.0-98.5); ABG PCO2 20.2 mmHg (35.0-45.0); ABG PH 7.424 (7.350-7.450); ABG PO2 76.8 mmHg (75.0-100.0); AaDO2 400.6 mmHg; COHb 0.3 % (0.5-1.5); O2Hb 95.6 % (94.0-97.0); SITE, ABG Right Radial; VENT MODE, BG AC 24 500 70%
--- NOTE | 2020-03-06 08:42 | NUR ---
WOUND CARE CONSULT: PT PRESENTS WITH RT HEEL INTACT DEEP TISSUE INJURY. RECOMMENDATIONS MADE FOR SKIN PROTECTION AND WOUND CARE. DISCUSSED WITH NURSING STFF. PT NOTED TO HAVE MULTIPLE CO-MORBIDITIES INCLUDING RESPIRATORY FAILURE (CURRENTLY INTUBATED). PT IS [facility]. IN AGREEMENT WITH PLAN OF CARE. Addendum: 03/06/20 at 0844 by CRUZITO ZEPEDA WNDNU Amended: Links added.
[2020-03-06] MEDS: AMLODIPINE BESYLATE 10 MG TABLET PO SCH (09:00)
[2020-03-06] MEDS: METOPROLOL TARTRATE 25 MG TABLET PO SCH ×2 (09:00→17:25)
--- NOTE | 2020-03-06 09:30 | NUR ---
RN NOTES GET CALL FROM LAB [facility] FOR CKD RESULT 59.9.
[2020-03-06] MEDS: CITRIC ACID/SODIUM CITRATE (BICITRA)15 ML UDC PO SCH ×4 (09:54→21:18)
[2020-03-06] MEDS: PANTOPRAZOLE 40 MG TABLET.DR PO SCH (09:54)
[2020-03-06] MEDS: FINASTERIDE (5 MG) 5 MG TABLET PO SCH (09:54)
[2020-03-06] MEDS: MULTIVIT W/MINERALS 1 TAB TABLET PO SCH (09:54)
[2020-03-06] MEDS: FAMOTIDINE/PF INJ 20 MG/2 ML VIAL IV SCH ×2 (09:54→21:17)
[2020-03-06] MEDS ORDERED: Magnesium 1GM/D5W 100ML PREMIX 100 ML IV SCH (11:30)
--- NOTE | 2020-03-06 14:15 | NUR ---
rn notes started patellate transfusion at this time 199 ml. infusing 50 ml/hr at this time v/s taken t-97.5 axillary, p90, bp 115/62, r23, o2-98 mechanical ventilator. patient stable. will monitoring.
--- NOTE | 2020-03-06 14:30 | NUR ---
rn notes patient stable has no sign and symptoms of any reaction for patellate infusion, v/s taken bp 107/55, p-90, r-26, t-97.5, o2-98 ventilation, patient calm and cooperative, no acute respiratory distress, increased infusion on 75ml/hr continued infusion monitoring.
[2020-03-06] MEDS: NOREPINEPHRINE 8 MG in IV NS 0.9% 242 ML IV PRN (14:47)
--- NOTE | 2020-03-06 15:00 | NUR ---
rn notes PATIENT STABLE T-97.6 AXILLARY, BP-114/55, P-90, R-24, O2-99 ON VENT, PATIENT HAS NO RESPIRATORY DISTRESS, INCREASED INFUSION 125 ML/HR. WILL MONITORING.
--- NOTE | 2020-03-06 15:25 | NUR ---
RN NOTES PER Dr PETERS TO ORDER CANCEL COVID TESTING PATIENT AT THIS TIME.
--- NOTE | 2020-03-06 16:23 | NUR ---
rn notes finished patellate transfusion at this time, patient stable, no acute respiratory distress, v/s taken bp 112/52, p-86, r-21. t-97.6. continued monitoring.
[2020-03-06] MEDS ORDERED: NEPRO 1,000 ML BOTTLE NG PRN (18:30)
--- NOTE | 2020-03-06 18:50 | NUR ---
RN NOTES PM CARE DONE, ADMINISTERED SCHEDULED MEDICATION VIA NG TUBE, KEEP HOB ELEVATED FOR ASPIRATION PRECAUTION. INFUSING LEVOPHED 0.1 MCG, DIPRIVAN 10MCG, D51/2 NS WITH BICARB 2 UMP AT 150 ML/HR, AND MERREM AT 33.33 ML/HE EXTENDED DOSE, CENTRAL LINE INTACT. PATIENT HAS 275 ML OF OUTPUT SANDS INTACT. ASSIST TURN AND REPOSTION Q 2 HR. GET ORDER NGT FEEDING NEPRO AT 15ML/HR. PATIENT TOLERATED EET SETTING WELL, NO ACUTE RESPIRATORY DISTRESS. ENDORSED ONCOMING NURSE FOLLOW PLAN OF CARE.
[2020-03-06] MEDS: ATORVASTATIN 10 MG TABLET PO SCH (21:18)
[2020-03-06] MEDS: TAMSULOSIN 0.4 MG CAP.SR.24H PO SCH (21:18)
[2020-03-06] MEDS: MIRTAZAPINE 15 MG TABLET PO SCH (21:19)
[2020-03-06] MEDS: QUETIAPINE FUMARATE 25 MG TABLET PO SCH (21:19)
--- NOTE | 2020-03-06 21:19 | NUR ---
ONLINE ADVERTISING ANALYST: STILL INTUBATED AND SEDATED WT DIPRIVAN AT 10MCG/KG/MIN. HELD SEROQUEL AND REMERON AT THIS TIME.
[2020-03-07] VITALS (90 sets, daily range): BP systolic 68–125; BP diastolic 34–73
[2020-03-07] MEDS: ALBUTEROL FS 2.5 MG/0.5 ML VIAL.NEB NEB SCH ×5 (01:56→19:48)
[2020-03-07] MEDS: IPRATROPIUM NEB FS 0.5 MG/2.5 ML AMPUL.NEB NEB SCH ×5 (01:56→19:48)
--- NOTE | 2020-03-07 04:26 | NUR ---
RT NOTE PT ORALLY INTUBATED VIA ETT SZ #7.5 SECURED AT 25CM AT THE LIP LINE. PT ON [facility] VENT ON AC MODE SETTINGS CHARTED. PT SX'D FOR SMALL AMT OF PALE YELLOW SECRETIONS. ALARMS ARE SET AND AUDIBLE. VENT PLUGGED INTO RED OUTLET. AMBU BAG BEDSIDE. WILL CONTINUE TO MONITOR CLOSELY. Addendum: 03/07/20 at 0427 by STEVE SURESH RT Amended: Links added.
[2020-03-07] MEDS: MEROPENEM 1 G in IV NS 0.9% 100 ML IV SCH ×2 (05:19→17:19)
[2020-03-07] MEDS: HYDROCORTISONE SOD SUCCINATE 100 MG/2 ML VIAL IV SCH ×3 (05:19→21:46)
[2020-03-07] MEDS: NOREPINEPHRINE 8 MG in IV NS 0.9% 242 ML IV PRN ×2 (05:25→08:54)
[2020-03-07 05:31] LABS: BASOPHILS # (AUTO) 0.2 /CMM (0.0-0.2); BASOPHILS % (AUTO) 1.4 % (0.0-2.0); HEMATOCRIT 25 % (39-51); HEMOGLOBIN 7.9 g/dL (13.5-17.5); LYMPHOCYTES # (AUTO) 0.1 /CMM (0.8-4.8); LYMPHOCYTES % (AUTO) 1.2 % (20.0-44.0); MEAN CORPUSCULAR HGB CONC 33 g/dl (31.0-36.0); MEAN CORPUSCULAR VOLUME 96 fL (80-96); MONOCYTES % (AUTO) 0.4 % (2.0-12.0); NEUTROPHILS # (AUTO) 11.5 /CMM (1.8-8.9); RED BLOOD CELL COUNT(AUTO) 2.55 MIL/uL (4.5-6.0); WHITE BLOOD COUNT (AUTO) 11.8 K/uL (4.3-11.0)
[2020-03-07 05:33] LABS: PLATELET COUNT (AUTO) 41 /CMM (150-450)
[2020-03-07 05:48] LABS: CALCIUM, SERUM 6.8 mg/dL (8.5-10.1); CARBON DIOXIDE 20 mmol/L (21-32); CHLORIDE 107 mmol/L (98-107); CREATININE 3.4 mg/dL (0.6-1.3); PHOSPHORUS 6.3 mg/dL (2.5-4.9); POTASSIUM 3.7 mmol/L (3.5-5.1); SODIUM SERUM 137 mmol/L (136-145); UREA NITROGEN, BLOOD 48 mg/dL (7-18)
[2020-03-07] MEDS ORDERED: VANCOMYCIN 0.75 GM in IV D5W 250 ML IV SCH (06:00)
[2020-03-07] MEDS: Sodium Bicarbonate 100 MEQ in IV D5/0.45 NACL 1,000 ML IV PRN ×3 (06:16→21:46)
[2020-03-07 06:39] LABS: GLUCOSE 467 mg/dL (74-106)
--- NOTE | 2020-03-07 07:10 | NUR ---
WRAPPER HANDS SPRAYER: CONTINUE VENT SETTINGS ORDERED AND TOLERATED WELL. STILL ON BICARB. DRIP AT 150ML/HR, LEVOPHED AT 0.1MCG/KG/MIN AND PROPOFOL AT 10MCG/KG/MIN. WITHDRAWS TO PAIN STILL. NO DISTRESS NOTED. MINIMAL URINE OUTPUT VIA F/C. HELD VANCO. D/T HIGH VANCO TROUGH RESULT. RECEIVED CRITICAL GLUCOSE RESULT AND FSBS PERFORMED WT STILL CRITICAL RESULT. PAGED MD TWINE REELING MACHINE OPERATOR. AWAITING CALL BACK. ENDORSED TO DAYSHIFT FOR CONTINUITY OF CARE AND TO START GT FEEDING WHEN FEEDING PUMP IS AVAILABLE. HOB AT 35 DEGREES. BED IN LOWEST POSITION AND LOCKED. BED ALARM ACTIVATED. ALL NEEDS MET.
--- NOTE | 2020-03-07 07:45 | NUR ---
ICU/RN PT IS INTUBATED ON THE VENT AC MODE,SAT O2-95%.ON LEVOPHED DRIP .SEDATED ON DIPRIVAN.RIGHT SC TLC.PT IS ON BICARB DRIP.GENERALIZED EDEMA PRESENT.F/C IN PLACE DRAINING WITH MINIMAL AMOUNT OF URINE.NG TUBE CLAMPED.MULTIPLY BRUISES AND SKIN TEARS NOTED ALL OVER THE BODY.LOWER BACK WOUND COVERED WITH DRESSING.SUCTION PROVIDED REPOSITION FOR COMFORT.LABS REVIEW MD NOTIFIED.
[2020-03-07] MEDS: PANTOPRAZOLE 40 MG TABLET.DR PO SCH (08:35)
[2020-03-07] MEDS: CITRIC ACID/SODIUM CITRATE (BICITRA)15 ML UDC PO SCH ×4 (08:35→21:45)
[2020-03-07] MEDS: QUETIAPINE FUMARATE 25 MG TABLET PO SCH ×2 (08:36→21:48)
[2020-03-07] MEDS: FINASTERIDE (5 MG) 5 MG TABLET PO SCH (08:36)
[2020-03-07] MEDS: FAMOTIDINE/PF INJ 20 MG/2 ML VIAL IV SCH ×2 (08:36→21:46)
[2020-03-07] MEDS: METOPROLOL TARTRATE 25 MG TABLET PO SCH ×2 (08:36→17:00)
[2020-03-07] MEDS: MULTIVIT W/MINERALS 1 TAB TABLET PO SCH (08:36)
[2020-03-07] MEDS: AMLODIPINE BESYLATE 10 MG TABLET PO SCH (08:37)
--- NOTE | 2020-03-07 09:00 | NUR ---
ICU/RN DUE MEDS ARE GIVEN ORDERED.
--- NOTE | 2020-03-07 09:45 | NUR ---
ICU/RN SEDATION VACATION PROVIDED.PT OPEN EYES ,NOT FOLLOWS COMMAND.BACK TO PROPOFOL.CONTINUE MONITOR.
[2020-03-07] MEDS ORDERED: DEXTROSE 50%-WATER 50 ML DISP.SYRIN IV PRN (13:30)
[2020-03-07] MEDS: PROPOFOL 100 ML IV PRN (14:03)
[2020-03-07] MEDS: INSULIN REGULAR, HUMAN 100 UNIT/ML 3 ML VIAL SQ PRN ×2 (14:04→17:20)
--- NOTE | 2020-03-07 17:00 | NUR ---
ICU/RN PM CARE PROVIDED.WOUND DRESSING DONE ORDERED.DUE MEDS ARE GIVEN ORDERED.SUCTION PROVIDED.REPOSITION FOR COMFORT.CONTINUE MONITORING.
[2020-03-07] MEDS: BLOOD SUGAR DIAGNOSTIC 1 EACH STRIP IN SCH (17:10)
[2020-03-07] MEDS: MIRTAZAPINE 15 MG TABLET PO SCH (21:46)
[2020-03-07] MEDS: ATORVASTATIN 10 MG TABLET PO SCH (21:46)
[2020-03-07] MEDS: TAMSULOSIN 0.4 MG CAP.SR.24H PO SCH (21:46)
[2020-03-08] VITALS (98 sets, daily range): BP systolic 57–152; BP diastolic 32–92
[2020-03-08] MEDS: INSULIN REGULAR, HUMAN 100 UNIT/ML 3 ML VIAL SQ PRN ×4 (00:31→17:32)
[2020-03-08] MEDS: BLOOD SUGAR DIAGNOSTIC 1 EACH STRIP IN SCH ×4 (00:34→17:29)
[2020-03-08] MEDS: ALBUTEROL FS 2.5 MG/0.5 ML VIAL.NEB NEB SCH ×4 (01:21→20:21)
[2020-03-08] MEDS: IPRATROPIUM NEB FS 0.5 MG/2.5 ML AMPUL.NEB NEB SCH ×4 (01:21→20:21)
[2020-03-08] MEDS: NOREPINEPHRINE 8 MG in IV NS 0.9% 242 ML IV PRN ×2 (03:57→08:11)
[2020-03-08] MEDS: Sodium Bicarbonate 100 MEQ in IV D5/0.45 NACL 1,000 ML IV PRN ×4 (05:08→20:11)
[2020-03-08] MEDS: MEROPENEM 1 G in IV NS 0.9% 100 ML IV SCH ×2 (05:08→17:10)
[2020-03-08 05:09] LABS: BASOPHILS % (AUTO) 0.3 % (0.0-2.0); HEMATOCRIT 24 % (39-51); HEMOGLOBIN 8.2 g/dL (13.5-17.5); LYMPHOCYTES # (AUTO) 0.2 /CMM (0.8-4.8); LYMPHOCYTES % (AUTO) 2.5 % (20.0-44.0); MEAN CORPUSCULAR HGB CONC 34 g/dl (31.0-36.0); MEAN CORPUSCULAR VOLUME 91 fL (80-96); MONOCYTES % (AUTO) 0.5 % (2.0-12.0); NEUTROPHILS # (AUTO) 6.9 /CMM (1.8-8.9); NEUTROPHILS % (AUTO) 96.7 % (43.0-81.0); RED BLOOD CELL COUNT(AUTO) 2.61 MIL/uL (4.5-6.0); WHITE BLOOD COUNT (AUTO) 7.2 K/uL (4.3-11.0)
[2020-03-08] MEDS: HYDROCORTISONE SOD SUCCINATE 100 MG/2 ML VIAL IV SCH ×3 (05:09→21:34)
[2020-03-08] MEDS: PROPOFOL 100 ML IV PRN ×2 (05:10→16:58)
[2020-03-08 05:35] LABS: PLATELET COUNT (AUTO) 29 /CMM (150-450)
[2020-03-08 05:37] LABS: CALCIUM, SERUM 7.2 mg/dL (8.5-10.1); CARBON DIOXIDE 24 mmol/L (21-32); CHLORIDE 107 mmol/L (98-107); CREATININE 3.7 mg/dL (0.6-1.3); GLUCOSE 341 mg/dL (74-106); POTASSIUM 3.3 mmol/L (3.5-5.1); SODIUM SERUM 144 mmol/L (136-145); UREA NITROGEN, BLOOD 53 mg/dL (7-18)
[2020-03-08 05:59] LABS: LYMPHOCYTES % (MANUAL) 3 % (16-48); MONOCYTES % (MANUAL) 3 % (0-11.0)
[2020-03-08 06:00] LABS: NEUTROPHILS % (MANUAL) 94 (42-76)
[2020-03-08 06:41] LABS: ABG BASE EXCESS -0.8 mmol/L; ABG OXYGEN SATURATION 80.1 % (92.0-98.5); ABG PH 7.517 (7.350-7.450); ABG PO2 44.7 mmHg (75.0-100.0); AaDO2 245.4 mmHg; COHb 0.3 % (0.5-1.5); O2Hb 79.9 % (94.0-97.0); PEEP,BG 0 cm H2O; SITE, ABG Right Radial; VENT MODE, BG AC 24 450 45%; VT, ABG 450 mL
[2020-03-08] MEDS: CITRIC ACID/SODIUM CITRATE (BICITRA)15 ML UDC PO SCH ×4 (08:36→21:34)
[2020-03-08] MEDS: MULTIVIT W/MINERALS 1 TAB TABLET PO SCH (08:37)
[2020-03-08] MEDS: FINASTERIDE (5 MG) 5 MG TABLET PO SCH (08:37)
[2020-03-08] MEDS: AMLODIPINE BESYLATE 10 MG TABLET PO SCH (08:37)
[2020-03-08] MEDS: METOPROLOL TARTRATE 25 MG TABLET PO SCH ×2 (08:37→16:52)
[2020-03-08] MEDS: FAMOTIDINE/PF INJ 20 MG/2 ML VIAL IV SCH ×2 (08:37→21:34)
[2020-03-08] MEDS: PANTOPRAZOLE 40 MG TABLET.DR PO SCH (08:37)
[2020-03-08] MEDS: QUETIAPINE FUMARATE 25 MG TABLET PO SCH ×2 (08:38→21:35)
[2020-03-08 09:13] LABS: ABG BASE EXCESS -0.8 mmol/L; ABG OXYGEN SATURATION 88.4 % (92.0-98.5); ABG PCO2 28.8 mmHg (35.0-45.0); ABG PH 7.498 (7.350-7.450); ABG PO2 55.9 mmHg (75.0-100.0); AaDO2 484.3 mmHg; COHb 0.3 % (0.5-1.5); MetHb 0.3 % (0.0-1.5); O2Hb 87.9 % (94.0-97.0); PEEP,BG 5 cm H2O; SITE, ABG Right Radial; VENT MODE, BG AC 20 450 +5 80%; VT, ABG 450 mL
[2020-03-08] MEDS: POLYETHYLENE GLYCOL 3350 17 GM POWD.PACK PO SCH ×2 (11:36→17:10)
--- NOTE | 2020-03-08 18:43 | NUR ---
RN NOTE 0715: Received patient sedated on Dip at 10mcg. With ETT to vent, tolerated settings at this time. No respiratory distress noted at this time. Left NGT intact, TF tolerated, kept HOB elevated. Davidson cath intact, noted with low UOP. PETR midline intact, RSC TLC intact. On Levo 0.1m, will titrate as ordered. On Bicarb drip ongoing. Noted with low Plt, will monitor for bleeding. 0900: Held BP meds due to pressors ongoing. 1130: Spoke with and given update re: patient's condition. 1300: S/E by Dr. Roberson aware for the labs today, with orders of electrolytes labs tomorrow. 1830: No any significant changes noted at this time. Kept clean, warm and dry. Needs attended. Turned and repositioned q2. On Dip 10mcg, Levo 0.05mcg.
[2020-03-08] MEDS: MIRTAZAPINE 15 MG TABLET PO SCH (21:34)
[2020-03-08] MEDS: TAMSULOSIN 0.4 MG CAP.SR.24H PO SCH (21:34)
[2020-03-08] MEDS: ATORVASTATIN 10 MG TABLET PO SCH (21:34)
--- NOTE | 2020-03-08 22:03 | NUR ---
RT pt received on mechanical vent with current settings. intubated with ett size 7.5 at 25@ lip. vent plugged in to red outlet. ambu bag at bedside. alarms on and audible. moderate secretions suctioned via ett. no sob, no resp distress. will continue to monitor.
[2020-03-09] VITALS (38 sets, daily range): BP systolic 93–168; BP diastolic 53–87
[2020-03-09] MEDS: BLOOD SUGAR DIAGNOSTIC 1 EACH STRIP IN SCH (01:06)
[2020-03-09] MEDS: IPRATROPIUM NEB FS 0.5 MG/2.5 ML AMPUL.NEB NEB SCH ×2 (01:35→08:15)
[2020-03-09] MEDS: ALBUTEROL FS 2.5 MG/0.5 ML VIAL.NEB NEB SCH ×2 (01:35→08:15)
[2020-03-09] MEDS: IV NS 0.9% 250 ML IV PRN (01:49)
[2020-03-09] MEDS: PROPOFOL 100 ML IV PRN (01:50)
[2020-03-09] MEDS: NOREPINEPHRINE 8 MG in IV NS 0.9% 242 ML IV PRN (01:50)
[2020-03-09] MEDS: INSULIN REGULAR, HUMAN 100 UNIT/ML 3 ML VIAL SQ PRN (02:13)
[2020-03-09 03:58] LABS: BASOPHILS % (AUTO) 0.1 % (0.0-2.0); HEMATOCRIT 24 % (39-51); HEMOGLOBIN 7.9 g/dL (13.5-17.5); LYMPHOCYTES # (AUTO) 0.1 /CMM (0.8-4.8); LYMPHOCYTES % (AUTO) 1.7 % (20.0-44.0); MEAN CORPUSCULAR HGB CONC 34 g/dl (31.0-36.0); MEAN CORPUSCULAR VOLUME 93 fL (80-96); MONOCYTES % (AUTO) 0.3 % (2.0-12.0); NEUTROPHILS # (AUTO) 7.4 /CMM (1.8-8.9); NEUTROPHILS % (AUTO) 97.9 % (43.0-81.0); RED BLOOD CELL COUNT(AUTO) 2.56 MIL/uL (4.5-6.0); WHITE BLOOD COUNT (AUTO) 7.5 K/uL (4.3-11.0)
[2020-03-09] MEDS ORDERED: INSULIN ASPART/LISPRO 100 UNIT/ML CARTRIDGE SQ ONE (04:00)
[2020-03-09] MEDS ORDERED: INSULIN REGULAR, HUMAN 100 UNIT/ML 3 ML VIAL SQ PRN (04:00)
[2020-03-09] MEDS ORDERED: DEXTROSE 50%-WATER 50 ML DISP.SYRIN IV PRN (04:00)
[2020-03-09] MEDS: Sodium Bicarbonate 100 MEQ in IV D5/0.45 NACL 1,000 ML IV PRN (04:02)
[2020-03-09 04:09] LABS: TOTAL IRON BINDING CAPACITY 121 ug/dl (250-450)
[2020-03-09 04:14] LABS: CALCIUM, SERUM 6.8 mg/dL (8.5-10.1); CARBON DIOXIDE 26 mmol/L (21-32); CHLORIDE 102 mmol/L (98-107); CREATININE 3.8 mg/dL (0.6-1.3); MAGNESIUM 2.2 mg/dL (1.8-2.4); POTASSIUM 3.1 mmol/L (3.5-5.1); SODIUM SERUM 142 mmol/L (136-145); UREA NITROGEN, BLOOD 59 mg/dL (7-18)
[2020-03-09 04:15] LABS: GLUCOSE 522 mg/dL (74-106)
[2020-03-09 04:16] LABS: PHOSPHORUS 9.1 mg/dL (2.5-4.9)
[2020-03-09 04:47] LABS: PLATELET COUNT (AUTO) 19 /CMM (150-450)
[2020-03-09 04:49] LABS: BAND % (MANUAL) 8 % (0.0-5.0); LYMPHOCYTES % (MANUAL) 2 % (16-48); MONOCYTES % (MANUAL) 1 % (0-11.0); NEUTROPHILS % (MANUAL) 89 (42-76)
[2020-03-09] MEDS ORDERED: BLOOD SUGAR DIAGNOSTIC 1 EACH STRIP IN SCH (05:00)
[2020-03-09] MEDS ORDERED: INSULIN LISPRO/ASPART 100 UNIT/ML CARTRIDGE SQ ONE (05:14)
[2020-03-09] MEDS: MEROPENEM 1 G in IV NS 0.9% 100 ML IV SCH (05:15)
[2020-03-09] MEDS: HYDROCORTISONE SOD SUCCINATE 100 MG/2 ML VIAL IV SCH (05:15)
--- NOTE | 2020-03-09 06:42 | NUR ---
SALT GRINDER PT WITH INCREASED BLOOD GLUCOSE LEVELS UP TO 522 ORDERS RECEIVED FOR LISPRO x 1; CHANGE SLIDING SCALE TO Q4HR AGGRESSIVE UNTIL SUGAR "NORMALIZES" AND START LANTUS TONIGHT.
[2020-03-09] MEDS: MULTIVIT W/MINERALS 1 TAB TABLET PO SCH (08:57)
[2020-03-09] MEDS: CITRIC ACID/SODIUM CITRATE (BICITRA)15 ML UDC PO SCH (08:59)
[2020-03-09] MEDS: FINASTERIDE (5 MG) 5 MG TABLET PO SCH (08:59)
[2020-03-09] MEDS: POLYETHYLENE GLYCOL 3350 17 GM POWD.PACK PO SCH (08:59)
[2020-03-09] MEDS: AMLODIPINE BESYLATE 10 MG TABLET PO SCH (09:00)
[2020-03-09] MEDS: QUETIAPINE FUMARATE 25 MG TABLET PO SCH (09:00)
[2020-03-09] MEDS: FAMOTIDINE/PF INJ 20 MG/2 ML VIAL IV SCH (09:00)
[2020-03-09] MEDS: METOPROLOL TARTRATE 25 MG TABLET PO SCH (09:00)
[2020-03-09] MEDS: PANTOPRAZOLE 40 MG TABLET.DR PO SCH (09:01)
--- NOTE | 2020-03-09 09:10 | NUR ---
RN NOTES PT FOUND WITH NO PULSE , NO BP , ASYSTOLIC ON MONITOR , NO O2 SAT . PT IS DNR AND DNI , PRONOUNCED BY TWO RNS, PT'S , DR GOMEZ, ONE [facility] AND ADMITTING AND NURSING SUPPER VISORS NOITFED .
--- NOTE | 2020-03-09 09:10 | NUR ---
RN NOTE PT DNR STATUS. NOTED PT IN VFIB PER MONITOR PROCEEDING TO ASYSTOLE. NO PALPABLE PULSES. NO SPONTANEOUS RESP. AREFLEXIVE. PRONOUNCED AT 0910. NOTIFIED DR PETERS.
--- NOTE | 2020-03-09 11:44 | NUR ---
RN NOTES BODY RELEASED TO [facility] [place] .
[2020-03-09 14:31] LABS: IRON, SERUM 107566 ug/dl (50-175)
[2020-03-09 14:41] LABS: FERRITIN 107566 ng/mL (8-388)
[2020-03-09] MEDS ORDERED: INSULIN GLARGINE, 100 UNIT/ML CARTRIDGE SQ SCH (22:00)
== END 2020-03-09 09:10 | disposition expired | DRG 871 ==
LOC: ER 00:54 → TELE-TD 05:04 → TELE1 06:58 → MED 02-28 05:26 → TELE 02-28 05:54 → MED 02-28 15:21 → TELE 03-04 21:07 → TELE-TD 03-05 08:10 → TELE1 03-05 08:12 → ICU 03-05 09:28
PROVIDERS: ADMIT Nurse Practitioner Acute Care
PROC: 05HY33Z Insertion of Infusion Device into Upper Vein, Percutaneous Approach (ICD-10-PCS; principal; 2020-02-29)
PROC: 5A1945Z Respiratory Ventilation, 24-96 Consecutive Hours (ICD-10-PCS; 2020-03-05)
PROC: 0BH18EZ Insertion of Endotracheal Airway into Trachea, Via Natural or Artificial Opening Endoscopic (ICD-10-PCS; 2020-03-05)
PROC: 05H533Z Insertion of Infusion Device into Right Subclavian Vein, Percutaneous Approach (ICD-10-PCS; 2020-03-05)
PROC: B546ZZA Ultrasonography of Right Subclavian Vein, Guidance (ICD-10-PCS; 2020-03-05)
PROC: 30233R1 Transfusion of Nonautologous Platelets into Peripheral Vein, Percutaneous Approach (ICD-10-PCS; 2020-03-06)
DX: A41.9 Sepsis, unspecified organism (principal); J96.01 Acute respiratory failure with hypoxia; G93.41 Metabolic encephalopathy; N17.0 Acute kidney failure with tubular necrosis; I21.A1 Myocardial infarction type 2; R65.21 Severe sepsis with septic shock; J69.0 Pneumonitis due to inhalation of food and vomit; J90 Pleural effusion, not elsewhere classified; E87.0 Hyperosmolality and hypernatremia; D61.818 Other pancytopenia; D68.59 Other primary thrombophilia; R18.8 Other ascites; E87.2 Acidosis; B37.49 Other urogenital candidiasis; Z66 Do not resuscitate; Z51.5 Encounter for palliative care; R65.20 Severe sepsis without septic shock; I12.9 Hypertensive chronic kidney disease with stage 1 through stage 4 chronic kidney disease, or unspecified chronic kidney disease; J44.9 Chronic obstructive pulmonary disease, unspecified; N18.9 Chronic kidney disease, unspecified; N40.0 Benign prostatic hyperplasia without lower urinary tract symptoms; Z95.1 Presence of aortocoronary bypass graft; Z95.2 Presence of prosthetic heart valve; I25.10 Atherosclerotic heart disease of native coronary artery without angina pectoris; I35.0 Nonrheumatic aortic (valve) stenosis; K21.9 Gastro-esophageal reflux disease without esophagitis; M19.90 Unspecified osteoarthritis, unspecified site; Z20.828 Contact with and (suspected) exposure to other viral communicable diseases; Z86.79 Personal history of other diseases of the circulatory system; R13.10 Dysphagia, unspecified; I70.0 Atherosclerosis of aorta; E78.5 Hyperlipidemia, unspecified; F20.9 Schizophrenia, unspecified; F32.9 Major depressive disorder, single episode, unspecified; G30.9 Alzheimer's disease, unspecified; F02.80 Dementia in other diseases classified elsewhere, unspecified severity, without behavioral disturbance, psychotic disturbance, mood disturbance, and anxiety; Z79.82 Long term (current) use of aspirin; Z79.899 Other long term (current) drug therapy; E87.70 Fluid overload, unspecified; E86.0 Dehydration; Y95 Nosocomial condition; Z87.440 Personal history of urinary (tract) infections; Z96.649 Presence of unspecified artificial hip joint; Z98.890 Other specified postprocedural states; Z74.09 Other reduced mobility; E87.6 Hypokalemia; H26.9 Unspecified cataract; K27.9 Peptic ulcer, site unspecified, unspecified as acute or chronic, without hemorrhage or perforation; E87.5 Hyperkalemia; F39 Unspecified mood [affective] disorder; E83.52 Hypercalcemia; D53.9 Nutritional anemia, unspecified; G93.89 Other specified disorders of brain; H11.002 Unspecified pterygium of left eye; I25.2 Old myocardial infarction
CPT/HCPCS: 31720; 36410; 36415; 36600; 70450-TC; 71045-TC; 74018; 76700-TC; 80048-TC; 80053-TC; 80061-TC; 80076-TC; 80202-TC; 81001; 82247-TC; 82248-TC; 82272-TC; 82533; 82550-TC; 82553; 82570-TC; 82728-TC; 82784; 82803-TC; 82962-TC; 83540-TC; 83605-TC; 83615-TC; 83735-TC; 83880; 83970; 84100-TC; 84132-TC; 84155; 84155-TC; 84165; 84295-TC; 84300-TC; 84439-TC; 84443-TC; 84484-TC; 85025-TC; 85378-TC; 85385-TC; 85396; 85730-TC; 86140-TC; 86225; 86235; 86334; 86431-TC; 86706; 86803; 86850-TC; 87040-TC; 87081-TC; 87086-TC; 87340; 87449; 92526; 92611-TC; 93307-TC; 94002-TC; 94003-TC; 94760-TC; 94799-TC; A6253; A6403; C1751; C9803; G0378; J0692; J0696; J1720; J1815; J1940; J1956; J2185; J2543; J3370; J3475; J3480; J3490; J7030; J7040; J7042; J7050; J7060; J7070; P9016-BL; P9034-BL; U0003